=== PATIENT | female | born 1950 | race Asian ===

== ENCOUNTER 2016-10-26 16:52 | Inpatient (IN) | payer OTHER ==
[~2016-10-26] VITALS: Ht 160 cm; Wt 88.9 kg
[~2016-10-26 16:52] MED LIST: ALPR0.5T8 PO; ALPR1TAB7 PO; ASPI-1093 PO; INSNOV SQ; INSU3INS3 SQ; METF500T4 PO; METO25TA6 PO; NITR0.4T SL; ZOLP10TA6 PO
[2016-10-26] MEDS ORDERED: CLOP75 PO (17:21)
[2016-10-26] MEDS ORDERED: LIRA0.6P SQ (17:21)
[2016-10-26 17:22] LABS: GLUCOSE,POINT OF CARE 288 MG/DL (70-110)
[2016-10-26 18:35] LABS: BASOPHILS % (AUTO) 0.1 % (0.0-2.0); EOSINOPHILS % (AUTO) 0.7 % (1.0-6.0); HEMATOCRIT 32.6 % (36-46); HEMOGLOBIN 10.5 g/dL (12.0-16.0); LYMPHOCYTES # (AUTO) 2.3 K/uL (1.0-4.8); LYMPHOCYTES % (AUTO) 16.7 % (22.0-44.0); MEAN CORPUSCULAR HEMOGLOBIN 27.6 pg (26.0-34.0); MEAN CORPUSCULAR HGB CONC 32.2 G/dL (31.0-37.0); MEAN CORPUSCULAR VOLUME 86 fL (80-100); MONOCYTES # (AUTO) 1.1 K/uL (0.1-1.0); MONOCYTES % (AUTO) 7.7 % (2.0-9.0); NEUTROPHILS # (AUTO) 10.3 K/uL (1.8-7.7); NEUTROPHILS % (AUTO) 74.8 % (40.0-70.0); PLATELET COUNT (AUTO) 277 K/uL (150-450); WHITE BLOOD COUNT (AUTO) 13.7 K/uL (4.5-11.0)
[2016-10-26 18:46] LABS: CALCIUM, TOTAL 8.4 mg/dL (8.8-10.5); CREATININE 1.6 mg/dL (0.60-1.30); POTASSIUM 4.8 mmol/L (3.5-5.1)
[2016-10-26 18:52] LABS: ALBUMIN 3.1 g/dL (3.4-5.0); BILIRUBIN,TOTAL 0.4 mg/dL (0.1-1.0); TOTAL PROTEIN, SERUM 8.7 g/dL (6.4-8.2)
[2016-10-26] MEDS ORDERED: VANCOMYCIN HCL 1 GM/D5% WATER 200 ML IV ONE (20:15)
[2016-10-26] MEDS ORDERED: PIPERACILLIN/TAZO 3.375 GM/D5W 50 ML IV ONE (20:15)
[2016-10-26 20:57] LABS: GLUCOSE,POINT OF CARE 197 MG/DL (70-110)
[2016-10-26] MEDS ORDERED: ZOLPIDEM TARTRATE 10 MG TABLET PO SCH (21:45)
[2016-10-26] MEDS ORDERED: 0.9% SODIUM CHLORIDE 10 ML SYRINGE IVP PRN (21:45)
[2016-10-26] MEDS ORDERED: NITROGLYCERIN 0.4 MG SUBLINGUAL TABLET #25 SL PRN (21:45)
[2016-10-26] MEDS ORDERED: DEXTROSE 50%-WATER 25 GM/50 ML SYRINGE IVP PRN (21:45)
[2016-10-26] MEDS ORDERED: ZOLPIDEM TARTRATE 5 MG TABLET PO PRN (23:30)
[2016-10-27 00:10] VITALS: BP 146/61
[2016-10-27] MEDS: METOPROLOL TARTRATE 50 MG TABLET PO SCH ×2 (00:38→20:33)
[2016-10-27] MEDS: INSULIN ASPART 100 UNITS/ML SQ PRN ×5 (00:39→20:41)
[2016-10-27] MEDS: INSULIN DETEMIR 100 UNITS/ML SQ SCH ×2 (00:40→20:44)
[2016-10-27] MEDS ORDERED: ACETAMINOPHEN 325 MG TABLET PO PRN (04:00)
[2016-10-27 04:03] VITALS: BP 139/67
[2016-10-27] MEDS ORDERED: NAPROXEN 250 MG TABLET PO PRN (04:15)
[2016-10-27 06:16] LABS: BASOPHILS % (AUTO) 0.2 % (0.0-2.0); EOSINOPHILS % (AUTO) 1.1 % (1.0-6.0); HEMOGLOBIN 9.8 g/dL (12.0-16.0); LYMPHOCYTES # (AUTO) 1.9 K/uL (1.0-4.8); LYMPHOCYTES % (AUTO) 15.4 % (22.0-44.0); MEAN CORPUSCULAR HEMOGLOBIN 27.4 pg (26.0-34.0); MEAN CORPUSCULAR HGB CONC 31.8 G/dL (31.0-37.0); MEAN CORPUSCULAR VOLUME 86 fL (80-100); MONOCYTES % (AUTO) 8.3 % (2.0-9.0); NEUTROPHILS # (AUTO) 9.2 K/uL (1.8-7.7); PLATELET COUNT (AUTO) 274 K/uL (150-450); RED BLOOD CELL COUNT(AUTO) 3.59 MIL/uL (4.00-5.20); RED CELL DISTRIBUTION WIDTH 13.9 % (11.5-14.5); WHITE BLOOD COUNT (AUTO) 12.3 K/uL (4.5-11.0)
[2016-10-27 06:30] LABS: CALCIUM, TOTAL 8.2 mg/dL (8.8-10.5); CHOL/HDL RATIO 3.3 (3.9-5.7); CREATININE 1.33 mg/dL (0.60-1.30); POTASSIUM 4.2 mmol/L (3.5-5.1)
[2016-10-27 07:16] LABS: HEMOGLOBIN A1C 9.5 % (4.5-6.2)
[2016-10-27 07:46] LABS: GLUCOSE,POINT OF CARE 217 MG/DL (70-110)
[2016-10-27] MEDS: MetFORMIN HCL 500 MG TABLET PO SCH ×2 (08:00→17:24)
[2016-10-27] MEDS ORDERED: MetFORMIN HCL 500 MG TABLET PO SCH (08:00)
[2016-10-27 08:02] VITALS: BP 123/69
[2016-10-27 08:47] LABS: ERYTHROCYTE SEDIMENTATION RATE 125 MM/HR (0-20)
[2016-10-27] MEDS: LOSARTAN POTASSIUM 50 MG TABLET PO SCH (08:53)
[2016-10-27] MEDS: ALPRAZolam 1 MG TABLET PO SCH ×3 (08:54→21:00)
[2016-10-27] MEDS: CLOPIDOGREL BISULFATE 75 MG TABLET PO SCH (08:54)
[2016-10-27] MEDS: ATORVASTATIN CALCIUM 40 MG TABLET PO SCH (08:54)
[2016-10-27] MEDS: ASPIRIN 81 MG CHEWABLE TABLET PO SCH (08:54)
[2016-10-27] MEDS ORDERED: ALPRAZolam 0.5 MG TABLET PO SCH (09:00)
[2016-10-27] MEDS ORDERED: LIRAGLUTIDE 1.2 MG SQ SCH (09:00)
[2016-10-27] MEDS ORDERED: METOPROLOL TARTRATE 25 MG TABLET PO SCH (09:00)
[2016-10-27] MEDS ORDERED: ASPIRIN 81 MG EC TABLET PO SCH (09:00)
[2016-10-27] MEDS ORDERED: SODIUM CHLORIDE 0.9% 500 ML IV ONE (10:58)
[2016-10-27] MEDS ORDERED: VANCOMYCIN HCL 1 GM/D5% WATER 200 ML IV ONE (11:00)
[2016-10-27] MEDS: PIPERACILLIN/TAZO 3.375 GM/D5W 50 ML IV SCH ×3 (11:17→20:34)
[2016-10-27 11:47] LABS: GLUCOSE,POINT OF CARE 96 MG/DL (70-110)
[2016-10-27 11:52] VITALS: BP 150/74
[2016-10-27] MEDS ORDERED: LORazepam 2 MG/ML VIAL IVP ONE (13:15)
[2016-10-27] MEDS ORDERED: BISACODYL 10 MG RECTAL RECTAL SUPPOSITORY PR PRN (15:00)
[2016-10-27] MEDS ORDERED: MAGNESIUM HYDROXIDE SUSPENSION 30 ML UDCUP PO PRN (15:00)
[2016-10-27 15:10] VITALS: BP 128/63
[2016-10-27 19:37] LABS: GLUCOSE COMMENT 1 Received Meds; GLUCOSE,POINT OF CARE 163 MG/DL (70-110)
[2016-10-27 19:58] VITALS: BP 141/70
[2016-10-27 20:52] LABS: GLUCOSE COMMENT 1 Received Meds; GLUCOSE,POINT OF CARE 216 MG/DL (70-110)
[2016-10-28 00:16] VITALS: BP 140/86
[2016-10-28] MEDS: PIPERACILLIN/TAZO 3.375 GM/D5W 50 ML IV SCH ×4 (04:53→23:04)
[2016-10-28] MEDS: INSULIN ASPART 100 UNITS/ML SQ PRN ×3 (04:58→17:53)
[2016-10-28 05:06] VITALS: BP 149/72
[2016-10-28] MEDS ORDERED: FentaNYL CITRATE-PF 100 MCG/2 ML VIAL IVP ONE (05:22)
[2016-10-28] MEDS ORDERED: MIDAZOLAM HCL 2 MG/2 ML VIAL IVP ONE (05:22)
[2016-10-28 06:17] LABS: CALCIUM, TOTAL 8.5 mg/dL (8.8-10.5); CREATININE 1.34 mg/dL (0.60-1.30); POTASSIUM 4.7 mmol/L (3.5-5.1)
[2016-10-28] MEDS ORDERED: METOCLOPRAMIDE HCL 5 MG/ML 2 ML VIAL IVP ONE (06:43)
[2016-10-28] MEDS ORDERED: PROPOFOL 1% 20 ML VIAL IVP ONE (06:43)
[2016-10-28] MEDS ORDERED: LIDOCAINE HCL/PF 2% 5 ML VIAL IM ONE (06:43)
[2016-10-28] MEDS ORDERED: ONDANSETRON HCL 4 MG/2 ML VIAL IVP ONE (06:43)
[2016-10-28 07:47] LABS: GLUCOSE COMMENT 1 Received Meds; GLUCOSE,POINT OF CARE 195 MG/DL (70-110)
[2016-10-28 07:49] VITALS: BP 139/69
[2016-10-28] MEDS: MetFORMIN HCL 500 MG TABLET PO SCH ×2 (08:00→16:20)
[2016-10-28] MEDS: VANCOMYCIN HCL 1.25 GM in DEXTROSE 5%-WATER 250 ML IV SCH (08:08)
[2016-10-28] MEDS: LOSARTAN POTASSIUM 50 MG TABLET PO SCH (08:09)
[2016-10-28] MEDS: ASPIRIN 81 MG CHEWABLE TABLET PO SCH (08:09)
[2016-10-28] MEDS: ATORVASTATIN CALCIUM 40 MG TABLET PO SCH (08:09)
[2016-10-28] MEDS: ALPRAZolam 1 MG TABLET PO SCH ×3 (08:10→21:00)
[2016-10-28] MEDS: LIRAGLUTIDE 1.2 MG SQ SCH (08:10)
[2016-10-28] MEDS: CLOPIDOGREL BISULFATE 75 MG TABLET PO SCH (08:10)
[2016-10-28] MEDS ORDERED: SODIUM CHLORIDE 0.9% 1,000 ML IV ONE ×2 (10:45→19:35)
[2016-10-28 11:15] VITALS: BP 138/63
[2016-10-28] MEDS ORDERED: BUPIVACAINE HCL/PF 0.5% 30 ML VIAL ONE ×2 (11:34)
[2016-10-28] MEDS ORDERED: LIDOCAINE HCL/PF 1% 30 ML VIAL ONE (11:35)
[2016-10-28 12:02] LABS: GLUCOSE COMMENT 1 Doctor Notified; GLUCOSE,POINT OF CARE 116 MG/DL (70-110)
[2016-10-28] MEDS: SODIUM CHLORIDE 0.45% 1,000 ML IV SCH ×2 (13:24→22:30)
[2016-10-28] MEDS ORDERED: ZOLPIDEM TARTRATE 5 MG TABLET PO PRN (13:45)
[2016-10-28] MEDS: LIDOCAINE HCL/PF 1% 30 ML VIAL ONE ×2 (15:53→19:15)
[2016-10-28] MEDS: BUPIVACAINE HCL/PF 0.5% 30 ML VIAL ONE ×2 (15:53→19:15)
[2016-10-28 16:14] VITALS: BP 144/65
[2016-10-28] MEDS ORDERED: FentaNYL CITRATE-PF 100 MCG/2 ML VIAL IVP PRN (19:30)
[2016-10-28] MEDS ORDERED: HYDROmorphone 2 MG/ML SYRINGE IVP PRN (19:30)
[2016-10-28] MEDS ORDERED: MEPERIDINE-PF 25 MG/ML SYRINGE IVP PRN (19:30)
[2016-10-28] MEDS ORDERED: SODIUM CHLORIDE 0.9% 10 ML ONE (19:35)
[2016-10-28] MEDS ORDERED: BACITRACIN 50,000 UNITS/VIAL ONE (19:35)
[2016-10-28 19:47] LABS: GLUCOSE,POINT OF CARE 140 MG/DL (70-110)
[2016-10-28 19:47] LABS: GLUCOSE,POINT OF CARE 105 MG/DL (70-110)
[2016-10-28] MEDS ORDERED: OXYGEN THERAPY IH SCH (20:00)
[2016-10-28] MEDS: INSULIN DETEMIR 100 UNITS/ML SQ SCH (21:00)
[2016-10-28 21:32] LABS: GLUCOSE,POINT OF CARE 103 MG/DL (70-110)
[2016-10-28] MEDS: METOPROLOL TARTRATE 50 MG TABLET PO SCH (21:34)
[2016-10-28] MEDS: OxyCODONE HCL/ACETAMINOPHEN 5-325 MG TABLET PO SCH (23:04)
[2016-10-28 23:26] VITALS: BP 119/74
[2016-10-29 04:42] VITALS: BP 131/72
[2016-10-29] MEDS: PIPERACILLIN/TAZO 3.375 GM/D5W 50 ML IV SCH ×4 (04:58→21:15)
[2016-10-29] MEDS: OxyCODONE HCL/ACETAMINOPHEN 5-325 MG TABLET PO SCH ×3 (06:00→17:38)
[2016-10-29 06:10] LABS: BASOPHILS % (AUTO) 0.2 % (0.0-2.0); HEMATOCRIT 28.6 % (36-46); HEMOGLOBIN 9.1 g/dL (12.0-16.0); LYMPHOCYTES # (AUTO) 2.3 K/uL (1.0-4.8); LYMPHOCYTES % (AUTO) 21.9 % (22.0-44.0); MEAN CORPUSCULAR HEMOGLOBIN 27.5 pg (26.0-34.0); MEAN CORPUSCULAR HGB CONC 31.9 G/dL (31.0-37.0); MEAN CORPUSCULAR VOLUME 86 fL (80-100); MONOCYTES # (AUTO) 0.9 K/uL (0.1-1.0); MONOCYTES % (AUTO) 8.9 % (2.0-9.0); NEUTROPHILS # (AUTO) 6.9 K/uL (1.8-7.7); PLATELET COUNT (AUTO) 227 K/uL (150-450); RED BLOOD CELL COUNT(AUTO) 3.31 MIL/uL (4.00-5.20); RED CELL DISTRIBUTION WIDTH 14.4 % (11.5-14.5); WHITE BLOOD COUNT (AUTO) 10.5 K/uL (4.5-11.0)
[2016-10-29 06:31] LABS: CALCIUM, TOTAL 8.1 mg/dL (8.8-10.5); CREATININE 1.55 mg/dL (0.60-1.30); POTASSIUM 4.6 mmol/L (3.5-5.1)
[2016-10-29] MEDS: INSULIN ASPART 100 UNITS/ML SQ PRN ×4 (06:42→21:16)
[2016-10-29 08:34] VITALS: BP 134/60
[2016-10-29] MEDS: MetFORMIN HCL 500 MG TABLET PO SCH ×3 (08:37→17:38)
[2016-10-29] MEDS: ATORVASTATIN CALCIUM 40 MG TABLET PO SCH (08:37)
[2016-10-29] MEDS: ASPIRIN 81 MG CHEWABLE TABLET PO SCH (08:38)
[2016-10-29] MEDS: LOSARTAN POTASSIUM 50 MG TABLET PO SCH (08:38)
[2016-10-29] MEDS: CLOPIDOGREL BISULFATE 75 MG TABLET PO SCH (08:38)
[2016-10-29] MEDS: VANCOMYCIN HCL 1.25 GM in DEXTROSE 5%-WATER 250 ML IV SCH (08:46)
[2016-10-29 11:28] VITALS: BP 142/66
[2016-10-29 11:46] LABS: GLUCOSE COMMENT 1 Received Meds; GLUCOSE,POINT OF CARE 303 MG/DL (70-110)
[2016-10-29 12:38] LABS: GLUCOSE,POINT OF CARE 282 MG/DL (70-110)
[2016-10-29] MEDS: SODIUM CHLORIDE 0.45% 1,000 ML IV SCH (15:10)
[2016-10-29] MEDS: ALPRAZolam 1 MG TABLET PO SCH ×3 (15:21→21:15)
[2016-10-29 15:39] VITALS: BP 109/62
[2016-10-29 17:46] LABS: GLUCOSE COMMENT 1 Received Meds; GLUCOSE,POINT OF CARE 144 MG/DL (70-110)
[2016-10-29 20:31] VITALS: BP 123/61
[2016-10-29] MEDS: METOPROLOL TARTRATE 50 MG TABLET PO SCH (21:15)
[2016-10-29] MEDS: INSULIN DETEMIR 100 UNITS/ML SQ SCH (21:17)
[2016-10-29 21:37] LABS: GLUCOSE COMMENT 1 Received Meds; GLUCOSE,POINT OF CARE 210 MG/DL (70-110)
[2016-10-29 23:37] VITALS: BP 118/56
[2016-10-30] MEDS: SODIUM CHLORIDE 0.45% 1,000 ML IV SCH (02:47)
[2016-10-30] MEDS: PIPERACILLIN/TAZO 3.375 GM/D5W 50 ML IV SCH ×4 (04:24→21:12)
[2016-10-30] MEDS: INSULIN ASPART 100 UNITS/ML SQ PRN ×4 (05:38→21:10)
[2016-10-30] MEDS: OxyCODONE HCL/ACETAMINOPHEN 5-325 MG TABLET PO SCH ×4 (06:00→18:00)
[2016-10-30 06:04] VITALS: BP 115/55
[2016-10-30 06:12] LABS: GLUCOSE COMMENT 1 Received Meds; GLUCOSE,POINT OF CARE 216 MG/DL (70-110)
[2016-10-30 07:23] LABS: CALCIUM, TOTAL 7.9 mg/dL (8.8-10.5); CREATININE 1.56 mg/dL (0.60-1.30); POTASSIUM 4.5 mmol/L (3.5-5.1)
[2016-10-30 07:54] VITALS: BP 117/57
[2016-10-30] MEDS: VANCOMYCIN HCL 1.25 GM in DEXTROSE 5%-WATER 250 ML IV SCH (08:06)
[2016-10-30] MEDS: ATORVASTATIN CALCIUM 40 MG TABLET PO SCH (08:06)
[2016-10-30] MEDS: CLOPIDOGREL BISULFATE 75 MG TABLET PO SCH (08:07)
[2016-10-30] MEDS: LOSARTAN POTASSIUM 50 MG TABLET PO SCH (08:07)
[2016-10-30] MEDS: LIRAGLUTIDE 1.2 MG SQ SCH ×2 (08:07→09:00)
[2016-10-30] MEDS: ALPRAZolam 1 MG TABLET PO SCH ×3 (08:07→21:00)
[2016-10-30] MEDS: ASPIRIN 81 MG CHEWABLE TABLET PO SCH (08:07)
[2016-10-30 11:31] LABS: GLUCOSE COMMENT 1 Received Meds; GLUCOSE,POINT OF CARE 237 MG/DL (70-110)
[2016-10-30 12:06] VITALS: BP 142/66
[2016-10-30 15:52] VITALS: BP 145/68
[2016-10-30 17:37] LABS: GLUCOSE COMMENT 1 Received Meds; GLUCOSE,POINT OF CARE 174 MG/DL (70-110)
[2016-10-30] MEDS: MetFORMIN HCL 500 MG TABLET PO SCH (18:16)
[2016-10-30 20:08] VITALS: BP 141/63
[2016-10-30] MEDS: METOPROLOL TARTRATE 50 MG TABLET PO SCH (21:06)
[2016-10-30] MEDS: INSULIN DETEMIR 100 UNITS/ML SQ SCH (21:08)
[2016-10-30 23:09] VITALS: BP 152/83
[2016-10-30 23:51] LABS: GLUCOSE COMMENT 1 Received Meds; GLUCOSE,POINT OF CARE 298 MG/DL (70-110)
[2016-10-31] MEDS: OxyCODONE HCL/ACETAMINOPHEN 5-325 MG TABLET PO SCH ×4 (03:23→18:00)
[2016-10-31] MEDS: PIPERACILLIN/TAZO 3.375 GM/D5W 50 ML IV SCH ×4 (03:23→21:06)
[2016-10-31 04:51] VITALS: BP 166/73
[2016-10-31] MEDS: INSULIN ASPART 100 UNITS/ML SQ PRN ×4 (05:36→20:25)
[2016-10-31 05:47] LABS: GLUCOSE COMMENT 1 Received Meds; GLUCOSE,POINT OF CARE 216 MG/DL (70-110)
[2016-10-31 06:18] LABS: CALCIUM, TOTAL 8.8 mg/dL (8.8-10.5); CREATININE 1.13 mg/dL (0.60-1.30); POTASSIUM 4.5 mmol/L (3.5-5.1)
[2016-10-31] MEDS: MetFORMIN HCL 500 MG TABLET PO SCH ×2 (08:00→18:00)
[2016-10-31] MEDS: LIRAGLUTIDE 1.2 MG SQ SCH (08:25)
[2016-10-31] MEDS: VANCOMYCIN HCL 1.25 GM in DEXTROSE 5%-WATER 250 ML IV SCH (08:25)
[2016-10-31] MEDS: LOSARTAN POTASSIUM 50 MG TABLET PO SCH (08:26)
[2016-10-31] MEDS: CLOPIDOGREL BISULFATE 75 MG TABLET PO SCH (08:26)
[2016-10-31] MEDS: ASPIRIN 81 MG CHEWABLE TABLET PO SCH (08:27)
[2016-10-31] MEDS: ATORVASTATIN CALCIUM 40 MG TABLET PO SCH (08:27)
[2016-10-31] MEDS: ALPRAZolam 1 MG TABLET PO SCH ×3 (08:29→20:16)
[2016-10-31 08:30] VITALS: BP 166/79
[2016-10-31 11:37] LABS: GLUCOSE COMMENT 1 Received Meds; GLUCOSE,POINT OF CARE 232 MG/DL (70-110)
[2016-10-31 16:09] VITALS: BP 125/79
[2016-10-31] MEDS ORDERED: SODIUM CHLORIDE 0.9% 500 ML IV ONE (16:13)
[2016-10-31 17:28] LABS: GLUCOSE COMMENT 1 Received Meds; GLUCOSE,POINT OF CARE 192 MG/DL (70-110)
[2016-10-31 19:47] VITALS: BP 131/102
[2016-10-31] MEDS: METOPROLOL TARTRATE 50 MG TABLET PO SCH (20:16)
[2016-10-31] MEDS: INSULIN DETEMIR 100 UNITS/ML SQ SCH (20:28)
[2016-10-31 23:24] VITALS: BP 149/95
[2016-10-31] MEDS: CeFAZolin 2 GM/DEXTROSE 50 ML IV SCH (23:38)
[2016-11-01 00:12] LABS: GLUCOSE COMMENT 1 Received Meds; GLUCOSE,POINT OF CARE 181 MG/DL (70-110)
[2016-11-01 04:27] VITALS: BP 145/95
[2016-11-01] MEDS: INSULIN ASPART 100 UNITS/ML SQ PRN ×3 (05:48→20:28)
[2016-11-01] MEDS: OxyCODONE HCL/ACETAMINOPHEN 5-325 MG TABLET PO SCH ×4 (06:00→18:00)
[2016-11-01 06:52] LABS: CALCIUM, TOTAL 9.8 mg/dL (8.8-10.5); CREATININE 1.11 mg/dL (0.60-1.30); POTASSIUM 4.5 mmol/L (3.5-5.1)
[2016-11-01 07:12] VITALS: BP 159/77
[2016-11-01 07:31] LABS: GLUCOSE COMMENT 1 Received Meds; GLUCOSE,POINT OF CARE 171 MG/DL (70-110)
[2016-11-01] MEDS: MetFORMIN HCL 500 MG TABLET PO SCH ×2 (08:00→18:00)
[2016-11-01] MEDS: ATORVASTATIN CALCIUM 40 MG TABLET PO SCH (08:25)
[2016-11-01] MEDS: ASPIRIN 81 MG CHEWABLE TABLET PO SCH (08:25)
[2016-11-01] MEDS: ALPRAZolam 1 MG TABLET PO SCH ×3 (08:26→23:32)
[2016-11-01] MEDS: CLOPIDOGREL BISULFATE 75 MG TABLET PO SCH (08:26)
[2016-11-01] MEDS: LOSARTAN POTASSIUM 50 MG TABLET PO SCH (08:26)
[2016-11-01] MEDS: LIRAGLUTIDE 1.2 MG SQ SCH (08:27)
[2016-11-01] MEDS: CeFAZolin 2 GM/DEXTROSE 50 ML IV SCH ×3 (08:46→23:35)
[2016-11-01 12:16] VITALS: BP 132/71
[2016-11-01 12:32] LABS: GLUCOSE COMMENT 1 Received Meds; GLUCOSE,POINT OF CARE 194 MG/DL (70-110)
[2016-11-01 15:08] LABS: PROTHROMBIN TIME 10.1 SEC (9.4-11.6)
[2016-11-01] MEDS ORDERED: HEPARIN SODIUM 1000 UNITS/NS 500 ML ONE (15:37)
[2016-11-01 16:48] VITALS: BP 142/82
[2016-11-01 18:22] LABS: GLUCOSE COMMENT 1 Received Meds; GLUCOSE,POINT OF CARE 224 MG/DL (70-110)
[2016-11-01 20:14] VITALS: BP 131/69
[2016-11-01] MEDS: METOPROLOL TARTRATE 50 MG TABLET PO SCH (20:24)
[2016-11-01] MEDS: INSULIN DETEMIR 100 UNITS/ML SQ SCH (20:28)
[2016-11-01 20:47] LABS: GLUCOSE COMMENT 1 Received Meds; GLUCOSE,POINT OF CARE 196 MG/DL (70-110)
[2016-11-02 00:21] VITALS: BP 131/82
[2016-11-02 05:30] VITALS: BP 148/72
[2016-11-02] MEDS: INSULIN ASPART 100 UNITS/ML SQ PRN ×3 (05:39→17:26)
[2016-11-02] MEDS: OxyCODONE HCL/ACETAMINOPHEN 5-325 MG TABLET PO SCH ×4 (05:47→18:00)
[2016-11-02 07:11] LABS: CALCIUM, TOTAL 9.1 mg/dL (8.8-10.5); CREATININE 1.04 mg/dL (0.60-1.30)
[2016-11-02] MEDS: MetFORMIN HCL 500 MG TABLET PO SCH ×2 (08:00→18:00)
[2016-11-02 08:06] VITALS: BP 122/65
[2016-11-02] MEDS: ASPIRIN 81 MG CHEWABLE TABLET PO SCH (08:22)
[2016-11-02] MEDS: CeFAZolin 2 GM/DEXTROSE 50 ML IV SCH ×2 (08:22→16:29)
[2016-11-02] MEDS: LOSARTAN POTASSIUM 50 MG TABLET PO SCH (08:23)
[2016-11-02] MEDS: ATORVASTATIN CALCIUM 40 MG TABLET PO SCH (08:23)
[2016-11-02] MEDS: ALPRAZolam 1 MG TABLET PO SCH ×2 (08:23→16:00)
[2016-11-02] MEDS: CLOPIDOGREL BISULFATE 75 MG TABLET PO SCH (08:23)
[2016-11-02] MEDS: LIRAGLUTIDE 1.2 MG SQ SCH (08:24)
[2016-11-02 11:39] VITALS: BP 146/82
[2016-11-02 14:22] LABS: GLUCOSE COMMENT 1 Received Meds; GLUCOSE,POINT OF CARE 203 MG/DL (70-110)
[2016-11-02 14:22] LABS: GLUCOSE COMMENT 1 Received Meds; GLUCOSE,POINT OF CARE 150 MG/DL (70-110)
[2016-11-02 15:55] VITALS: BP 117/59
[2016-11-02 17:36] LABS: GLUCOSE COMMENT 1 Received Meds; GLUCOSE,POINT OF CARE 234 MG/DL (70-110)
[2016-11-07] MEDS ORDERED: ATOR40TA28 PO (11:04)
[2016-11-07] MEDS ORDERED: CEFA2PIG IV (11:04)
[2016-11-07] MEDS ORDERED: INSU100V12 SQ (11:04)
[2016-11-07] MEDS ORDERED: NAPR125O4 PO (11:04)
[2016-11-07] MEDS ORDERED: METO50 PO (11:04)
[2016-11-07] MEDS ORDERED: NITR0.4T27 SL (11:04)
[2016-11-07] MEDS ORDERED: PERCT PO (11:04)
[2016-11-07] MEDS ORDERED: LOSA50TA37 PO (11:04)
[2016-11-07] MEDS ORDERED: ZOLP5 PO (11:04)
[2016-11-07] MEDS ORDERED: METF500T4 PO (11:04)
[2017-01-18] MEDS ORDERED: CEPH500 PO (16:17)
== END 2016-11-02 18:42 | DRG 629 ==
LOC: EMS 16:54 → 6N 20:48
PROVIDERS: ADMIT Family Medicine; ATTEND Family Medicine
PROC: 0QBQ0ZX Excision of Right Toe Phalanx, Open Approach, Diagnostic (ICD-10-PCS; 2016-10-28)
PROC: 0QBQ0ZZ Excision of Right Toe Phalanx, Open Approach (ICD-10-PCS; principal; 2016-10-28 19:00)
PROC: 02H633Z Insertion of Infusion Device into Right Atrium, Percutaneous Approach (ICD-10-PCS; 2016-11-01)
PROC: B244ZZZ Ultrasonography of Right Heart (ICD-10-PCS; 2016-11-01)
DX: E11.621 Type 2 diabetes mellitus with foot ulcer (principal); M86.9 Osteomyelitis, unspecified; L03.116 Cellulitis of left lower limb; E11.69 Type 2 diabetes mellitus with other specified complication; E11.51 Type 2 diabetes mellitus with diabetic peripheral angiopathy without gangrene; E11.40 Type 2 diabetes mellitus with diabetic neuropathy, unspecified; L03.031 Cellulitis of right toe; B95.61 Methicillin susceptible Staphylococcus aureus infection as the cause of diseases classified elsewhere; E78.00 Pure hypercholesterolemia, unspecified; E78.5 Hyperlipidemia, unspecified; I11.9 Hypertensive heart disease without heart failure; I25.10 Atherosclerotic heart disease of native coronary artery without angina pectoris; L97.519 Non-pressure chronic ulcer of other part of right foot with unspecified severity; M10.00 Idiopathic gout, unspecified site; Z79.4 Long term (current) use of insulin; Z89.412 Acquired absence of left great toe; Z95.1 Presence of aortocoronary bypass graft; Z95.5 Presence of coronary angioplasty implant and graft; Z79.82 Long term (current) use of aspirin; Z79.02 Long term (current) use of antithrombotics/antiplatelets; Z79.899 Other long term (current) drug therapy; I25.2 Old myocardial infarction
CPT/HCPCS: 36569; 73718; 76937; 82962; 83036; 83735; 85651; 87070; 87205; 88305; 88311; 93005; 96365; 99285; J0690; J1644; J2060; J2250; J2405; J2543; J2704; J2765; J3010; J3370; J3490; J7030; J7040; J7060

== ENCOUNTER → 2016-11-07 | Outpatient (CLI) | payer OTHER ==
[~2016-11-07] VITALS: Ht 160 cm; Wt 89.5 kg
[~2016-11-07] MED LIST changes: -ALPR1TAB7 PO; +ATOR40TA28 PO; +CEFA2PIG IV; +CEPH500 PO; +CLOP75 PO; +INSU100V12 SQ; +LIRA0.6P SQ; +LOSA50TA37 PO; +METO50 PO; +NAPR125O4 PO; +NITR0.4T27 SL; +PERCT PO; +SODIUM CHLORIDE 0.9% 1,000 ML IV ONE; +ZOLP5 PO
[2016-11-07 10:16] VITALS: BP 134/73
== END | disposition home or self-care (01) ==
LOC: HBOWC 09:28
PROVIDERS: ATTEND Emergency Medicine
DX: E11.621 Type 2 diabetes mellitus with foot ulcer (principal); L97.521 Non-pressure chronic ulcer of other part of left foot limited to breakdown of skin; L97.511 Non-pressure chronic ulcer of other part of right foot limited to breakdown of skin; E11.69 Type 2 diabetes mellitus with other specified complication; M86.8X7 Other osteomyelitis, ankle and foot; E78.5 Hyperlipidemia, unspecified; I11.9 Hypertensive heart disease without heart failure; I25.2 Old myocardial infarction; E78.00 Pure hypercholesterolemia, unspecified; E11.40 Type 2 diabetes mellitus with diabetic neuropathy, unspecified; E11.51 Type 2 diabetes mellitus with diabetic peripheral angiopathy without gangrene; B35.1 Tinea unguium; L84 Corns and callosities; Z89.412 Acquired absence of left great toe; Z95.1 Presence of aortocoronary bypass graft; Z79.4 Long term (current) use of insulin
CPT/HCPCS: 97597; J7030

== ENCOUNTER → 2016-11-15 | Outpatient (CLI) | payer OTHER ==
[~2016-11-15] MED LIST changes: -INSU3INS3 SQ; -SODIUM CHLORIDE 0.9% 1,000 ML IV ONE
[2016-11-15 14:52] VITALS: BP 137/77
== END | disposition home or self-care (01) ==
LOC: HBOWC 12:26
PROVIDERS: ATTEND Emergency Medicine
DX: E11.621 Type 2 diabetes mellitus with foot ulcer (principal); L97.522 Non-pressure chronic ulcer of other part of left foot with fat layer exposed; L97.511 Non-pressure chronic ulcer of other part of right foot limited to breakdown of skin; E11.69 Type 2 diabetes mellitus with other specified complication; M86.8X7 Other osteomyelitis, ankle and foot; B35.1 Tinea unguium; I25.2 Old myocardial infarction; L84 Corns and callosities; E78.5 Hyperlipidemia, unspecified; I11.0 Hypertensive heart disease with heart failure; I50.9 Heart failure, unspecified; E11.40 Type 2 diabetes mellitus with diabetic neuropathy, unspecified; E78.00 Pure hypercholesterolemia, unspecified; E11.52 Type 2 diabetes mellitus with diabetic peripheral angiopathy with gangrene; Z95.1 Presence of aortocoronary bypass graft; Z89.412 Acquired absence of left great toe; Z79.4 Long term (current) use of insulin
CPT/HCPCS: 97597

== ENCOUNTER → 2016-11-23 | Outpatient (CLI) | payer OTHER ==
[2016-11-23 10:14] VITALS: BP 100/50
== END | disposition home or self-care (01) ==
LOC: HBOWC 09:23
PROVIDERS: ATTEND Emergency Medicine
DX: E11.621 Type 2 diabetes mellitus with foot ulcer (principal); L97.511 Non-pressure chronic ulcer of other part of right foot limited to breakdown of skin; L97.522 Non-pressure chronic ulcer of other part of left foot with fat layer exposed; E11.69 Type 2 diabetes mellitus with other specified complication; M86.8X7 Other osteomyelitis, ankle and foot; E11.51 Type 2 diabetes mellitus with diabetic peripheral angiopathy without gangrene; I11.0 Hypertensive heart disease with heart failure; I50.9 Heart failure, unspecified; Z89.412 Acquired absence of left great toe; I25.2 Old myocardial infarction; Z79.4 Long term (current) use of insulin; E78.5 Hyperlipidemia, unspecified; L84 Corns and callosities; E78.00 Pure hypercholesterolemia, unspecified; Z95.1 Presence of aortocoronary bypass graft
CPT/HCPCS: 97597

== ENCOUNTER → 2016-11-28 | Outpatient (CLI) | payer OTHER | END | disposition home or self-care (01) | LOC: RADPV 12:28 | PROVIDERS: ATTEND Emergency Medicine | DX: E11.621 Type 2 diabetes mellitus with foot ulcer (principal); L97.529 Non-pressure chronic ulcer of other part of left foot with unspecified severity; S92.912D Unspecified fracture of left toe(s), subsequent encounter for fracture with routine healing; M20.42 Other hammer toe(s) (acquired), left foot; M76.62 Achilles tendinitis, left leg; M77.32 Calcaneal spur, left foot; X58.XXXD Exposure to other specified factors, subsequent encounter ==

== ENCOUNTER → 2016-12-02 | Outpatient (CLI) | payer OTHER ==
[2016-12-02 11:50] VITALS: BP 146/73
== END | disposition home or self-care (01) ==
LOC: HBOWC 10:14
PROVIDERS: ATTEND Emergency Medicine
DX: E11.621 Type 2 diabetes mellitus with foot ulcer (principal); L97.511 Non-pressure chronic ulcer of other part of right foot limited to breakdown of skin; L97.521 Non-pressure chronic ulcer of other part of left foot limited to breakdown of skin; E11.69 Type 2 diabetes mellitus with other specified complication; M86.8X7 Other osteomyelitis, ankle and foot; L84 Corns and callosities; I11.0 Hypertensive heart disease with heart failure; I50.9 Heart failure, unspecified; E78.5 Hyperlipidemia, unspecified; I25.2 Old myocardial infarction; E78.00 Pure hypercholesterolemia, unspecified; E11.40 Type 2 diabetes mellitus with diabetic neuropathy, unspecified; E11.52 Type 2 diabetes mellitus with diabetic peripheral angiopathy with gangrene; I25.10 Atherosclerotic heart disease of native coronary artery without angina pectoris; Z95.1 Presence of aortocoronary bypass graft; Z89.412 Acquired absence of left great toe
CPT/HCPCS: 97597

== ENCOUNTER → 2016-12-09 | Outpatient (CLI) | payer OTHER ==
[~2016-12-09] MED LIST changes: -CEPH500 PO
[2016-12-09 13:50] VITALS: BP 107/41
== END | disposition home or self-care (01) ==
LOC: HBOWC 13:00
PROVIDERS: ATTEND Emergency Medicine
DX: E11.621 Type 2 diabetes mellitus with foot ulcer (principal); L97.511 Non-pressure chronic ulcer of other part of right foot limited to breakdown of skin; L97.521 Non-pressure chronic ulcer of other part of left foot limited to breakdown of skin; I25.10 Atherosclerotic heart disease of native coronary artery without angina pectoris; Z89.412 Acquired absence of left great toe; E11.52 Type 2 diabetes mellitus with diabetic peripheral angiopathy with gangrene; E78.5 Hyperlipidemia, unspecified; I25.2 Old myocardial infarction; E11.69 Type 2 diabetes mellitus with other specified complication; M86.8X7 Other osteomyelitis, ankle and foot; E78.00 Pure hypercholesterolemia, unspecified; I11.0 Hypertensive heart disease with heart failure; I50.9 Heart failure, unspecified; E11.40 Type 2 diabetes mellitus with diabetic neuropathy, unspecified; Z95.1 Presence of aortocoronary bypass graft; Z79.4 Long term (current) use of insulin
CPT/HCPCS: 97597

== ENCOUNTER → 2016-12-23 | Outpatient (CLI) | payer OTHER ==
[~2016-12-23] MED LIST changes: +CEPH500 PO
[2016-12-23 13:49] VITALS: BP 118/65
== END | disposition home or self-care (01) ==
LOC: HBOWC 12:51
PROVIDERS: ATTEND Emergency Medicine
DX: E11.621 Type 2 diabetes mellitus with foot ulcer (principal); L97.511 Non-pressure chronic ulcer of other part of right foot limited to breakdown of skin; L97.521 Non-pressure chronic ulcer of other part of left foot limited to breakdown of skin; L85.9 Epidermal thickening, unspecified; M20.41 Other hammer toe(s) (acquired), right foot; E11.69 Type 2 diabetes mellitus with other specified complication; M86.8X7 Other osteomyelitis, ankle and foot; B35.1 Tinea unguium; L84 Corns and callosities; I11.0 Hypertensive heart disease with heart failure; I50.9 Heart failure, unspecified; I25.2 Old myocardial infarction; E78.00 Pure hypercholesterolemia, unspecified; E11.40 Type 2 diabetes mellitus with diabetic neuropathy, unspecified; E11.52 Type 2 diabetes mellitus with diabetic peripheral angiopathy with gangrene; M10.9 Gout, unspecified; Z95.1 Presence of aortocoronary bypass graft; Z89.412 Acquired absence of left great toe; Z79.4 Long term (current) use of insulin; Z79.82 Long term (current) use of aspirin
CPT/HCPCS: 97597

== ENCOUNTER → 2016-12-28 | Outpatient (CLI) | payer OTHER ==
[~2016-12-28] MED LIST changes: -CEPH500 PO
[2016-12-28 13:57] VITALS: BP 112/62
== END | disposition home or self-care (01) ==
LOC: HBOWC 12:14
PROVIDERS: ATTEND Emergency Medicine
DX: E11.621 Type 2 diabetes mellitus with foot ulcer (principal); L97.521 Non-pressure chronic ulcer of other part of left foot limited to breakdown of skin; L97.511 Non-pressure chronic ulcer of other part of right foot limited to breakdown of skin; E11.69 Type 2 diabetes mellitus with other specified complication; M86.8X7 Other osteomyelitis, ankle and foot; E11.40 Type 2 diabetes mellitus with diabetic neuropathy, unspecified; E11.52 Type 2 diabetes mellitus with diabetic peripheral angiopathy with gangrene; L84 Corns and callosities; I11.0 Hypertensive heart disease with heart failure; I50.9 Heart failure, unspecified; I25.2 Old myocardial infarction; M20.41 Other hammer toe(s) (acquired), right foot; E78.00 Pure hypercholesterolemia, unspecified; B35.1 Tinea unguium; I25.810 Atherosclerosis of coronary artery bypass graft(s) without angina pectoris; E78.5 Hyperlipidemia, unspecified; Z79.4 Long term (current) use of insulin; Z95.1 Presence of aortocoronary bypass graft; Z89.412 Acquired absence of left great toe; M20.42 Other hammer toe(s) (acquired), left foot
CPT/HCPCS: 11044; 97597

== ENCOUNTER → 2017-01-06 | Outpatient (CLI) | payer OTHER ==
[2017-01-06 15:22] VITALS: BP 126/55
== END | disposition home or self-care (01) ==
LOC: HBOWC 13:47
PROVIDERS: ATTEND Emergency Medicine
DX: E11.621 Type 2 diabetes mellitus with foot ulcer (principal); L97.521 Non-pressure chronic ulcer of other part of left foot limited to breakdown of skin; L97.511 Non-pressure chronic ulcer of other part of right foot limited to breakdown of skin; L84 Corns and callosities; I11.0 Hypertensive heart disease with heart failure; I50.9 Heart failure, unspecified; E78.5 Hyperlipidemia, unspecified; I25.2 Old myocardial infarction; E11.69 Type 2 diabetes mellitus with other specified complication; M86.8X7 Other osteomyelitis, ankle and foot; E78.00 Pure hypercholesterolemia, unspecified; B35.1 Tinea unguium; E11.40 Type 2 diabetes mellitus with diabetic neuropathy, unspecified; E11.52 Type 2 diabetes mellitus with diabetic peripheral angiopathy with gangrene; I25.10 Atherosclerotic heart disease of native coronary artery without angina pectoris; Z79.4 Long term (current) use of insulin
CPT/HCPCS: 97597

== ENCOUNTER → 2017-01-18 | Outpatient (CLI) | payer OTHER ==
[~2017-01-18] MED LIST changes: -CEFA2PIG IV; +CEPH500 PO
[2017-01-18 15:08] VITALS: BP 102/45
== END | disposition home or self-care (01) ==
LOC: HBOWC 13:29
PROVIDERS: ATTEND Emergency Medicine
DX: E11.621 Type 2 diabetes mellitus with foot ulcer (principal); L97.511 Non-pressure chronic ulcer of other part of right foot limited to breakdown of skin; L97.521 Non-pressure chronic ulcer of other part of left foot limited to breakdown of skin; I25.10 Atherosclerotic heart disease of native coronary artery without angina pectoris; L84 Corns and callosities; I11.0 Hypertensive heart disease with heart failure; I50.9 Heart failure, unspecified; I25.2 Old myocardial infarction; E11.69 Type 2 diabetes mellitus with other specified complication; M86.8X7 Other osteomyelitis, ankle and foot; E78.00 Pure hypercholesterolemia, unspecified; B35.1 Tinea unguium; E11.40 Type 2 diabetes mellitus with diabetic neuropathy, unspecified; E11.52 Type 2 diabetes mellitus with diabetic peripheral angiopathy with gangrene; Z89.412 Acquired absence of left great toe; Z79.4 Long term (current) use of insulin
CPT/HCPCS: 97597

== ENCOUNTER → 2017-02-09 | Outpatient (CLI) | payer OTHER ==
[~2017-02-09] MED LIST changes: +ACET-66 PO; +ACET1TAB12 PO; +ALLO100T50 PO; +ALPR1TAB7 PO; +ASCO500 PO; +ASPI-825 PO; +ASPI-996 PO; +ATOR40TA71 PO; +CALC-1009 PO; +CEFA2PIG IV; +CHOL10002 PO; +CIPR-278 PO; +CLIN300 PO; +COLC0.6T69 PO; +DIPH25 PO; +DIPH25CA85 PO; +DSS100 PO; +EXEN10PE SQ; +HYDR-309 PO; +HYDR-3965 PO; +INSLAN SQ; +INSU100V3 SQ; +INSU3INS3 SQ; +LEVO500 PO; +LISI10TA PO; +LOSA25TA2 PO; +MECL25TA3 PO; +METF1000 PO; +PANT40TA25 PO; +PENI250T3 PO; +PENI500T2 PO; +PRAV40 PO; +SIMV20TA6 PO; +SITA100 PO; +SULF1TAB42 PO; +VANC750F IV
[2017-02-09 14:09] VITALS: BP 130/61
== END | disposition home or self-care (01) ==
LOC: HBOWC 13:36
PROVIDERS: ATTEND Emergency Medicine
DX: E11.621 Type 2 diabetes mellitus with foot ulcer (principal); L97.511 Non-pressure chronic ulcer of other part of right foot limited to breakdown of skin; L97.521 Non-pressure chronic ulcer of other part of left foot limited to breakdown of skin; I25.10 Atherosclerotic heart disease of native coronary artery without angina pectoris; L84 Corns and callosities; I11.0 Hypertensive heart disease with heart failure; I50.9 Heart failure, unspecified; Z79.4 Long term (current) use of insulin; I25.2 Old myocardial infarction; E11.69 Type 2 diabetes mellitus with other specified complication; M86.8X7 Other osteomyelitis, ankle and foot; E78.00 Pure hypercholesterolemia, unspecified; B35.1 Tinea unguium; E11.40 Type 2 diabetes mellitus with diabetic neuropathy, unspecified; E11.52 Type 2 diabetes mellitus with diabetic peripheral angiopathy with gangrene; E78.5 Hyperlipidemia, unspecified; M20.42 Other hammer toe(s) (acquired), left foot; M20.41 Other hammer toe(s) (acquired), right foot; Z79.82 Long term (current) use of aspirin; Z89.412 Acquired absence of left great toe; Z95.1 Presence of aortocoronary bypass graft
CPT/HCPCS: 97597

== ENCOUNTER → 2017-02-20 | Outpatient (CLI) | payer OTHER ==
[~2017-02-20] MED LIST changes: -ACET-66 PO; -ACET1TAB12 PO; -ALLO100T50 PO; -ALPR1TAB7 PO; -ASCO500 PO; -ASPI-825 PO; -ASPI-996 PO; -ATOR40TA71 PO; -CALC-1009 PO; -CEFA2PIG IV; -CHOL10002 PO; -CIPR-278 PO; -CLIN300 PO; -COLC0.6T69 PO; -DIPH25 PO; -DIPH25CA85 PO; -DSS100 PO; -EXEN10PE SQ; -HYDR-309 PO; -HYDR-3965 PO; -INSLAN SQ; -INSU100V3 SQ; -INSU3INS3 SQ; -LEVO500 PO; -LISI10TA PO; -LOSA25TA2 PO; -MECL25TA3 PO; -METF1000 PO; -PANT40TA25 PO; -PENI250T3 PO; -PENI500T2 PO; -PRAV40 PO; -SIMV20TA6 PO; -SITA100 PO; -SULF1TAB42 PO; -VANC750F IV
== END | disposition home or self-care (01) ==
LOC: RADPV 14:04
PROVIDERS: ATTEND Emergency Medicine
DX: E11.621 Type 2 diabetes mellitus with foot ulcer (principal); L97.529 Non-pressure chronic ulcer of other part of left foot with unspecified severity

== ENCOUNTER → 2017-02-23 | Outpatient (CLI) | payer OTHER ==
[2017-02-23 15:21] VITALS: BP 151/70
== END | disposition home or self-care (01) ==
LOC: HBOWC 13:16
PROVIDERS: ATTEND Emergency Medicine
DX: E11.621 Type 2 diabetes mellitus with foot ulcer (principal); L97.511 Non-pressure chronic ulcer of other part of right foot limited to breakdown of skin; L97.521 Non-pressure chronic ulcer of other part of left foot limited to breakdown of skin; I25.10 Atherosclerotic heart disease of native coronary artery without angina pectoris; I11.0 Hypertensive heart disease with heart failure; I50.9 Heart failure, unspecified; E78.5 Hyperlipidemia, unspecified; I25.2 Old myocardial infarction; E11.69 Type 2 diabetes mellitus with other specified complication; M86.8X7 Other osteomyelitis, ankle and foot; E78.00 Pure hypercholesterolemia, unspecified; E11.40 Type 2 diabetes mellitus with diabetic neuropathy, unspecified; L84 Corns and callosities; Z89.412 Acquired absence of left great toe; Z95.1 Presence of aortocoronary bypass graft; Z79.4 Long term (current) use of insulin
CPT/HCPCS: 97597

== ENCOUNTER → 2017-03-03 | Outpatient (CLI) | payer OTHER ==
[2017-03-03 11:23] VITALS: BP 131/56
== END | disposition home or self-care (01) ==
LOC: HBOWC 10:50
PROVIDERS: ATTEND Emergency Medicine
DX: E11.621 Type 2 diabetes mellitus with foot ulcer (principal); L97.511 Non-pressure chronic ulcer of other part of right foot limited to breakdown of skin; L97.521 Non-pressure chronic ulcer of other part of left foot limited to breakdown of skin; I25.10 Atherosclerotic heart disease of native coronary artery without angina pectoris; L84 Corns and callosities; I11.0 Hypertensive heart disease with heart failure; I50.9 Heart failure, unspecified; E78.5 Hyperlipidemia, unspecified; I25.2 Old myocardial infarction; E11.69 Type 2 diabetes mellitus with other specified complication; M86.8X7 Other osteomyelitis, ankle and foot; E78.00 Pure hypercholesterolemia, unspecified; E11.40 Type 2 diabetes mellitus with diabetic neuropathy, unspecified; E11.52 Type 2 diabetes mellitus with diabetic peripheral angiopathy with gangrene; Z79.4 Long term (current) use of insulin; Z79.82 Long term (current) use of aspirin; Z89.412 Acquired absence of left great toe; Z95.1 Presence of aortocoronary bypass graft

== ENCOUNTER → 2017-03-16 | Outpatient (CLI) | payer OTHER ==
[2017-03-16 14:01] VITALS: BP 127/58
== END | disposition home or self-care (01) ==
LOC: HBOWC 12:52
PROVIDERS: ATTEND Emergency Medicine
DX: E11.69 Type 2 diabetes mellitus with other specified complication (principal); M86.8X8 Other osteomyelitis, other site; L84 Corns and callosities; I11.0 Hypertensive heart disease with heart failure; I50.9 Heart failure, unspecified; E78.5 Hyperlipidemia, unspecified; I25.2 Old myocardial infarction; E78.00 Pure hypercholesterolemia, unspecified; E11.40 Type 2 diabetes mellitus with diabetic neuropathy, unspecified; E11.52 Type 2 diabetes mellitus with diabetic peripheral angiopathy with gangrene; B35.1 Tinea unguium; Z79.4 Long term (current) use of insulin; Z89.412 Acquired absence of left great toe

== ENCOUNTER → 2017-06-07 | Outpatient (CLI) | payer OTHER ==
[~2017-06-07] VITALS: Ht 162.6 cm; Wt 89.1 kg
[~2017-06-07] MED LIST changes: -ASPI-1093 PO; +ASPI-1182 PO; +LIDOCAINE HCL 2% 5 ML JELLY TP ONE; -NITR0.4T27 SL; +NITR0.4T50 SL
[2017-06-07 13:42] VITALS: BP 134/56
== END | disposition home or self-care (01) ==
LOC: HBOWC 13:18
PROVIDERS: ATTEND Internal Medicine
DX: E11.621 Type 2 diabetes mellitus with foot ulcer (principal); L97.521 Non-pressure chronic ulcer of other part of left foot limited to breakdown of skin; E78.5 Hyperlipidemia, unspecified; I11.0 Hypertensive heart disease with heart failure; I50.9 Heart failure, unspecified; I25.2 Old myocardial infarction; E11.69 Type 2 diabetes mellitus with other specified complication; M86.8X8 Other osteomyelitis, other site; E11.40 Type 2 diabetes mellitus with diabetic neuropathy, unspecified; E11.52 Type 2 diabetes mellitus with diabetic peripheral angiopathy with gangrene; Z79.4 Long term (current) use of insulin; Z89.412 Acquired absence of left great toe
CPT/HCPCS: 11042

== ENCOUNTER → 2017-06-14 | Outpatient (CLI) | payer OTHER ==
[~2017-06-14] MED LIST changes: -CEPH500 PO; -LIDOCAINE HCL 2% 5 ML JELLY TP ONE; -NITR0.4T50 SL; -PERCT PO; -ZOLP10TA6 PO
[2017-06-14 14:11] VITALS: BP 133/60
== END | disposition home or self-care (01) ==
LOC: HBOWC 12:50
PROVIDERS: ATTEND Podiatrist
DX: E11.621 Type 2 diabetes mellitus with foot ulcer (principal); L97.521 Non-pressure chronic ulcer of other part of left foot limited to breakdown of skin; E11.40 Type 2 diabetes mellitus with diabetic neuropathy, unspecified; E11.52 Type 2 diabetes mellitus with diabetic peripheral angiopathy with gangrene; E11.69 Type 2 diabetes mellitus with other specified complication; M86.8X8 Other osteomyelitis, other site; I11.0 Hypertensive heart disease with heart failure; I50.9 Heart failure, unspecified; E78.5 Hyperlipidemia, unspecified; I25.2 Old myocardial infarction; Z79.4 Long term (current) use of insulin; Z89.412 Acquired absence of left great toe
CPT/HCPCS: 97597

== ENCOUNTER → 2017-06-21 | Outpatient (CLI) | payer OTHER ==
[2017-06-21 10:02] VITALS: BP 129/69
== END | disposition home or self-care (01) ==
LOC: HBOWC 09:12
PROVIDERS: ATTEND Internal Medicine
DX: E11.621 Type 2 diabetes mellitus with foot ulcer (principal); L97.521 Non-pressure chronic ulcer of other part of left foot limited to breakdown of skin; E11.52 Type 2 diabetes mellitus with diabetic peripheral angiopathy with gangrene; E11.40 Type 2 diabetes mellitus with diabetic neuropathy, unspecified; E11.69 Type 2 diabetes mellitus with other specified complication; M86.8X8 Other osteomyelitis, other site; L84 Corns and callosities; I11.0 Hypertensive heart disease with heart failure; I50.9 Heart failure, unspecified; I25.2 Old myocardial infarction; E78.5 Hyperlipidemia, unspecified; Z79.4 Long term (current) use of insulin; Z89.412 Acquired absence of left great toe

== ENCOUNTER 2018-08-19 19:45 | Emergency (ER) | payer OTHER, MEDICAID ==
[~2018-08-19] VITALS: Ht 160 cm; Wt 90.5 kg
[~2018-08-19 19:45] MED LIST changes: -ALPR0.5T8 PO; +AMIO200T44 PO; +CARV6 PO; +EZET10 PO; +FLUT15.88 NASAL; +FURO20 PO; -LIRA0.6P SQ; -LOSA50TA37 PO; +LOSA50TA64 PO; +METF-960 PO; -METF500T4 PO; -METO25TA6 PO; -METO50 PO; -NAPR125O4 PO; +PANT40TA25 PO; +SPIR25 PO; -ZOLP5 PO
[2018-08-19] MEDS ORDERED: ALPR0.5T8 PO (20:23)
[2018-08-19 21:39] VITALS: BP 135/52
== END 2018-08-19 22:06 | disposition home or self-care (01) ==
LOC: EMS 19:47
DX: F41.9 Anxiety disorder, unspecified (principal); E11.9 Type 2 diabetes mellitus without complications; E78.00 Pure hypercholesterolemia, unspecified; I11.9 Hypertensive heart disease without heart failure; I25.2 Old myocardial infarction; I25.10 Atherosclerotic heart disease of native coronary artery without angina pectoris; Z79.899 Other long term (current) drug therapy; Z79.82 Long term (current) use of aspirin; Z79.4 Long term (current) use of insulin; Z95.1 Presence of aortocoronary bypass graft

== ENCOUNTER 2018-08-29 15:39 | Inpatient (IN) | payer OTHER, MEDICAID ==
[~2018-08-29] VITALS: Ht 160 cm; Wt 92.2 kg
[~2018-08-29 15:39] MED LIST changes: +ALPR0.5T8 PO; -METF-960 PO; -SPIR25 PO
[2018-08-29 16:14] LABS: GLUCOSE,POINT OF CARE 229 MG/DL (70-110)
[2018-08-29] MEDS ORDERED: SODIUM CHLORIDE 0.9% 1,000 ML IV ONE (16:30)
[2018-08-29] MEDS ORDERED: PIPERACILLIN/TAZO 3.375 GM/D5W 50 ML IV ONE (16:30)
[2018-08-29 16:45] LABS: BASOPHILS % (AUTO) 0.3 % (0.0-2.0); EOSINOPHILS % (AUTO) 0.9 % (1.0-6.0); HEMATOCRIT 26.1 % (36-46); HEMOGLOBIN 8.6 g/dL (12.0-16.0); LYMPHOCYTES # (AUTO) 1.5 K/uL (1.0-4.8); LYMPHOCYTES % (AUTO) 11.9 % (22.0-44.0); MEAN CORPUSCULAR HEMOGLOBIN 30.5 pg (26.0-34.0); MEAN CORPUSCULAR VOLUME 93 fL (80-100); MONOCYTES % (AUTO) 8.1 % (2.0-9.0); NEUTROPHILS % (AUTO) 78.8 % (40.0-70.0); PLATELET COUNT (AUTO) 135 K/uL (150-450); RED BLOOD CELL COUNT(AUTO) 2.82 MIL/uL (4.00-5.20); RED CELL DISTRIBUTION WIDTH 14.1 % (11.5-14.5)
[2018-08-29 17:00] LABS: ALBUMIN 2.8 g/dL (3.4-5.0); BILIRUBIN,TOTAL 0.5 mg/dL (0.1-1.0); CALCIUM, TOTAL 8.4 mg/dL (8.8-10.5); CREATININE 2.35 mg/dL (0.60-1.30); TOTAL PROTEIN, SERUM 7.6 g/dL (6.4-8.2)
[2018-08-29 17:02] LABS: POTASSIUM 6.2 mmol/L (3.5-5.1)
[2018-08-29] MEDS ORDERED: CALCIUM GLUCONATE 100 MG/ML 10 ML IVP ONE (17:15)
[2018-08-29] MEDS ORDERED: INSULIN REGULAR, HUMAN 100 UNITS/ML IVP ONE (17:15)
[2018-08-29] MEDS ORDERED: DEXTROSE 50%-WATER 25 GM/50 ML SYRINGE IVP ONE (17:15)
[2018-08-29] MEDS ORDERED: SODIUM POLYSTYRENE SULFONATE 15 GM/60 ML SUSPENSION BOTTLE PO ONE (17:15)
[2018-08-29] MEDS ORDERED: ACETAMINOPHEN 325 MG TABLET PO PRN ×2 (17:45→23:00)
[2018-08-29] MEDS ORDERED: ONDANSETRON HCL 4 MG/2 ML VIAL IVP PRN ×2 (17:45→23:00)
[2018-08-29] MEDS ORDERED: MIDODRINE HCL 5 MG TABLET PO ONE (18:00)
[2018-08-29 18:39] LABS: GLUCOSE,POINT OF CARE 374 MG/DL (70-110)
[2018-08-29 19:48] LABS: GLUCOSE,POINT OF CARE 277 MG/DL (70-110)
[2018-08-29] MEDS ORDERED: NITROGLYCERIN 0.4 MG SUBLINGUAL TABLET #25 SL PRN (23:00)
[2018-08-29] MEDS ORDERED: ALBUTEROL SULFATE 2.5 MG/0.5 ML NEB SOLUTION NEB PRN (23:00)
[2018-08-29] MEDS ORDERED: HYDROCODONE/ACETAMINOPHEN 5-325 MG TABLET PO PRN (23:00)
[2018-08-29] MEDS ORDERED: IPRATROPIUM BROMIDE 0.5 MG/2.5 ML NEB SOLUTION NEB PRN (23:00)
[2018-08-29] MEDS ORDERED: ZOLPIDEM TARTRATE 5 MG TABLET PO PRN (23:00)
[2018-08-29] MEDS ORDERED: BISACODYL 10 MG RECTAL RECTAL SUPPOSITORY PR PRN (23:00)
[2018-08-29] MEDS ORDERED: MAGNESIUM HYDROXIDE SUSPENSION 30 ML UDCUP PO PRN (23:00)
[2018-08-29] MEDS ORDERED: DEXTROSE 50%-WATER 25 GM/50 ML SYRINGE IVP PRN (23:15)
[2018-08-29 23:45] VITALS: BP 116/52
[2018-08-29] MEDS ORDERED: SODIUM CHLORIDE 0.9% 250 ML IV ONE (23:48)
[2018-08-29] MEDS: PIPERACILLIN SODIUM/TAZOBACTAM 2.25 GM in DEXTROSE 5%-WATER 50 ML IV SCH (23:53)
[2018-08-29] MEDS: HEPARIN SODIUM,PORCINE 5,000 UNITS/ML VIAL SQ SCH (23:54)
[2018-08-30 00:31] LABS: CALCIUM, TOTAL 8.3 mg/dL (8.8-10.5); CREATININE 2.53 mg/dL (0.60-1.30); POTASSIUM 4.9 mmol/L (3.5-5.1)
[2018-08-30 04:56] VITALS: BP 118/59
[2018-08-30] MEDS: PIPERACILLIN SODIUM/TAZOBACTAM 2.25 GM in DEXTROSE 5%-WATER 50 ML IV SCH ×4 (05:29→23:31)
[2018-08-30] MEDS: INSULIN LISPRO 100 UNITS/ML SQ PRN ×3 (06:03→20:32)
[2018-08-30 07:24] LABS: BASOPHILS % (AUTO) 0.2 % (0.0-2.0); EOSINOPHILS % (AUTO) 1.3 % (1.0-6.0); HEMOGLOBIN 8.5 g/dL (12.0-16.0); LYMPHOCYTES # (AUTO) 1.1 K/uL (1.0-4.8); MEAN CORPUSCULAR HGB CONC 33.9 G/dL (31.0-37.0); MEAN CORPUSCULAR VOLUME 92 fL (80-100); MONOCYTES # (AUTO) 0.8 K/uL (0.1-1.0); MONOCYTES % (AUTO) 10.2 % (2.0-9.0); NEUTROPHILS # (AUTO) 5.6 K/uL (1.8-7.7); NEUTROPHILS % (AUTO) 73.3 % (40.0-70.0); PLATELET COUNT (AUTO) 116 K/uL (150-450); RED BLOOD CELL COUNT(AUTO) 2.73 MIL/uL (4.00-5.20)
[2018-08-30 07:29] LABS: GLUCOMETER DEV NAME(LOC) 5S.1; GLUCOSE,POINT OF CARE 254 MG/DL (70-110)
[2018-08-30 07:29] LABS: GLUCOMETER DEV NAME(LOC) 5S.1; GLUCOSE,POINT OF CARE 283 MG/DL (70-110)
[2018-08-30 07:38] LABS: HEMOGLOBIN A1C 8.4 % (4.5-6.2)
[2018-08-30 07:52] LABS: CALCIUM, TOTAL 7.9 mg/dL (8.8-10.5); CHOL/HDL RATIO 2.3 (3.9-5.7); CREATININE 2.36 mg/dL (0.60-1.30); FREE T4 (FREE THYROXINE) 1.26 ng/dL (0.76-1.46); MAGNESIUM 2.1 mg/dL (1.80-2.40); POTASSIUM 4.5 mmol/L (3.5-5.1); THYROID STIMULATING HORMONE 0.39 uIU/mL (0.36-3.74)
[2018-08-30 08:15] VITALS: BP 101/33
[2018-08-30] MEDS: ASPIRIN 81 MG EC TABLET PO SCH (09:00)
[2018-08-30] MEDS: CLOPIDOGREL BISULFATE 75 MG TABLET PO SCH (09:33)
[2018-08-30] MEDS: PANTOPRAZOLE SODIUM 40 MG DR TABLET PO SCH (09:33)
[2018-08-30] MEDS: AMIODARONE HCL 200 MG TABLET PO SCH (09:33)
[2018-08-30] MEDS: HEPARIN SODIUM,PORCINE 5,000 UNITS/ML VIAL SQ SCH ×2 (10:02→23:31)
[2018-08-30 11:25] VITALS: BP 127/66
[2018-08-30] MEDS ORDERED: VANCOMYCIN HCL 1 GM/VIAL ONE (12:34)
[2018-08-30] MEDS ORDERED: SODIUM CHLORIDE 0.9% 1,000 ML IV ONE ×2 (13:00→13:05)
[2018-08-30] MEDS ORDERED: SODIUM CHLORIDE 0.9% IRRIG BAG 1,000 ML IRRIG ONE (13:23)
[2018-08-30] MEDS ORDERED: BUPIVACAINE HCL/PF 0.5% 30 ML VIAL ONE (13:24)
[2018-08-30] MEDS ORDERED: BACITRACIN 50,000 UNITS/VIAL ONE (13:25)
[2018-08-30] MEDS ORDERED: LIDOCAINE/PF 1% 30 ML VIAL ONE (13:26)
[2018-08-30] MEDS ORDERED: KETAMINE HCL 50 MG/ML 10 ML VIAL ONE (13:29)
[2018-08-30 13:39] LABS: GLUCOMETER DEV NAME(LOC) SDS.; GLUCOSE,POINT OF CARE 132 MG/DL (70-110)
[2018-08-30] MEDS ORDERED: THROMBIN, BOVINE 20000 UNITS/VIAL POWDER TP ONE (13:43)
[2018-08-30] MEDS ORDERED: GELATIN SPONGE,ABSORBABLE 100 MM TP ONE (13:43)
[2018-08-30] MEDS ORDERED: MEPERIDINE-PF 25 MG/ML VIAL IVP PRN (14:15)
[2018-08-30] MEDS ORDERED: HYDROmorphone 2 MG/ML SYRINGE IVP PRN (14:15)
[2018-08-30] MEDS ORDERED: FentaNYL CITRATE-PF 100 MCG/2 ML VIAL IVP PRN (14:15)
[2018-08-30] MEDS ORDERED: VANCOMYCIN HCL 750 MG in DEXTROSE 5%-WATER 250 ML IV ONE (14:30)
[2018-08-30 15:33] VITALS: BP 129/60
[2018-08-30 15:39] LABS: GLUCOMETER DEV NAME(LOC) 5S.1; GLUCOSE,POINT OF CARE 140 MG/DL (70-110)
[2018-08-30] MEDS: HYDROCODONE/ACETAMINOPHEN 5-325 MG TABLET PO PRN ×2 (15:47→23:40)
[2018-08-30] MEDS: SODIUM CHLORIDE 0.45% 1,000 ML IV SCH (17:48)
[2018-08-30 19:20] VITALS: BP 112/54
[2018-08-30 19:39] LABS: GLUCOMETER DEV NAME(LOC) 5S.1; GLUCOSE,POINT OF CARE 199 MG/DL (70-110)
[2018-08-30] MEDS: EZETIMIBE 10 MG TABLET PO SCH (20:30)
[2018-08-30] MEDS: ATORVASTATIN CALCIUM 40 MG TABLET PO SCH (20:30)
[2018-08-30] MEDS ORDERED: INSULIN GLARGINE,HUM.REC.ANLOG 100 UNITS/ML SQ SCH ×2 (21:00)
[2018-08-31] VITALS (7 sets, daily range): BP systolic 113–138; BP diastolic 44–72
[2018-08-31] MEDS ORDERED: LIDOCAINE/PF 2% 5 ML VIAL IM ONE (05:31)
[2018-08-31] MEDS ORDERED: PROPOFOL 1% 20 ML VIAL IVP ONE (05:31)
[2018-08-31] MEDS ORDERED: MIDAZOLAM HCL 2 MG/2 ML VIAL IVP ONE (05:31)
[2018-08-31] MEDS: PIPERACILLIN SODIUM/TAZOBACTAM 2.25 GM in DEXTROSE 5%-WATER 50 ML IV SCH ×2 (05:49→11:29)
[2018-08-31] MEDS: INSULIN LISPRO 100 UNITS/ML SQ PRN ×2 (06:05→22:05)
[2018-08-31 06:19] LABS: CALCIUM, TOTAL 7.9 mg/dL (8.8-10.5); CREATININE 2.11 mg/dL (0.60-1.30); MAGNESIUM 1.9 mg/dL (1.80-2.40); POTASSIUM 4.5 mmol/L (3.5-5.1)
[2018-08-31 06:22] LABS: BASOPHILS % (AUTO) 0.3 % (0.0-2.0); EOSINOPHILS % (AUTO) 1.6 % (1.0-6.0); HEMATOCRIT 24.5 % (36-46); HEMOGLOBIN 8.2 g/dL (12.0-16.0); LYMPHOCYTES # (AUTO) 1.4 K/uL (1.0-4.8); LYMPHOCYTES % (AUTO) 13.9 % (22.0-44.0); MEAN CORPUSCULAR HEMOGLOBIN 30.7 pg (26.0-34.0); MEAN CORPUSCULAR HGB CONC 33.3 G/dL (31.0-37.0); MEAN CORPUSCULAR VOLUME 92 fL (80-100); MONOCYTES % (AUTO) 10.3 % (2.0-9.0); NEUTROPHILS # (AUTO) 7.2 K/uL (1.8-7.7); NEUTROPHILS % (AUTO) 73.9 % (40.0-70.0); PLATELET COUNT (AUTO) 129 K/uL (150-450); RED BLOOD CELL COUNT(AUTO) 2.67 MIL/uL (4.00-5.20); RED CELL DISTRIBUTION WIDTH 14.3 % (11.5-14.5)
[2018-08-31 08:04] LABS: GLUCOMETER DEV NAME(LOC) 5S.2; GLUCOSE,POINT OF CARE 305 MG/DL (70-110)
[2018-08-31 08:09] LABS: GLUCOMETER DEV NAME(LOC) 5S.1; GLUCOSE,POINT OF CARE 240 MG/DL (70-110)
[2018-08-31] MEDS: VANCOMYCIN HCL 750 MG in DEXTROSE 5%-WATER 250 ML IV SCH (08:24)
[2018-08-31] MEDS ORDERED: ALPRAZolam 0.5 MG TABLET PO PRN (08:30)
[2018-08-31] MEDS: CLOPIDOGREL BISULFATE 75 MG TABLET PO SCH (09:15)
[2018-08-31] MEDS: AMIODARONE HCL 200 MG TABLET PO SCH (09:15)
[2018-08-31] MEDS: ASPIRIN 81 MG EC TABLET PO SCH (09:15)
[2018-08-31] MEDS: CARVEDILOL 6.25 MG TABLET PO SCH (09:15)
[2018-08-31] MEDS: PANTOPRAZOLE SODIUM 40 MG DR TABLET PO SCH (09:15)
[2018-08-31] MEDS: HYDROCODONE/ACETAMINOPHEN 5-325 MG TABLET PO PRN (09:24)
[2018-08-31] MEDS: HEPARIN SODIUM,PORCINE 5,000 UNITS/ML VIAL SQ SCH ×2 (10:15→23:28)
[2018-08-31] MEDS: INSULIN LISPRO 100 UNITS/ML SQ SCH ×2 (12:11→17:31)
[2018-08-31] MEDS: SODIUM CHLORIDE 0.45% 1,000 ML IV SCH (15:47)
[2018-08-31 20:29] LABS: GLUCOMETER DEV NAME(LOC) 5S.1; GLUCOSE,POINT OF CARE 236 MG/DL (70-110)
[2018-08-31 20:29] LABS: GLUCOMETER DEV NAME(LOC) 5S.1; GLUCOSE,POINT OF CARE 236 MG/DL (70-110)
[2018-08-31] MEDS: EZETIMIBE 10 MG TABLET PO SCH (20:47)
[2018-08-31] MEDS: ATORVASTATIN CALCIUM 40 MG TABLET PO SCH (20:48)
[2018-08-31] MEDS: INSULIN GLARGINE,HUM.REC.ANLOG 100 UNITS/ML SQ SCH (22:08)
[2018-09-01 01:39] LABS: GLUCOMETER DEV NAME(LOC) 5S.1; GLUCOSE,POINT OF CARE 240 MG/DL (70-110)
[2018-09-01 03:30] VITALS: BP 137/64
[2018-09-01] MEDS: HYDROCODONE/ACETAMINOPHEN 5-325 MG TABLET PO PRN (03:53)
[2018-09-01] MEDS: SODIUM CHLORIDE 0.45% 1,000 ML IV SCH ×2 (06:11→23:03)
[2018-09-01 06:32] LABS: BASOPHILS % (AUTO) 0.4 % (0.0-2.0); EOSINOPHILS % (AUTO) 2.8 % (1.0-6.0); HEMATOCRIT 24.5 % (36-46); HEMOGLOBIN 8.2 g/dL (12.0-16.0); LYMPHOCYTES # (AUTO) 1.8 K/uL (1.0-4.8); LYMPHOCYTES % (AUTO) 21.1 % (22.0-44.0); MEAN CORPUSCULAR HGB CONC 33.2 G/dL (31.0-37.0); MEAN CORPUSCULAR VOLUME 93 fL (80-100); MONOCYTES # (AUTO) 0.7 K/uL (0.1-1.0); MONOCYTES % (AUTO) 8.6 % (2.0-9.0); NEUTROPHILS # (AUTO) 5.6 K/uL (1.8-7.7); NEUTROPHILS % (AUTO) 67.1 % (40.0-70.0); PLATELET COUNT (AUTO) 130 K/uL (150-450); RED BLOOD CELL COUNT(AUTO) 2.64 MIL/uL (4.00-5.20)
[2018-09-01] MEDS: INSULIN LISPRO 100 UNITS/ML SQ PRN ×2 (06:38→20:49)
[2018-09-01] MEDS: INSULIN LISPRO 100 UNITS/ML SQ SCH ×3 (06:38→17:21)
[2018-09-01 07:21] LABS: ALBUMIN 2.3 g/dL (3.4-5.0); BILIRUBIN,TOTAL 0.4 mg/dL (0.1-1.0); CALCIUM, TOTAL 8.2 mg/dL (8.8-10.5); CREATININE 1.91 mg/dL (0.60-1.30); MAGNESIUM 2.2 mg/dL (1.80-2.40); PHOSPHORUS 3.9 mg/dL (2.5-4.9); POTASSIUM 4.2 mmol/L (3.5-5.1); TOTAL PROTEIN, SERUM 7.1 g/dL (6.4-8.2)
[2018-09-01 08:23] VITALS: BP 119/54
[2018-09-01] MEDS ORDERED: LOSARTAN POTASSIUM 50 MG TABLET PO SCH (09:00)
[2018-09-01] MEDS: AMIODARONE HCL 200 MG TABLET PO SCH ×2 (09:00→15:03)
[2018-09-01] MEDS: CLOPIDOGREL BISULFATE 75 MG TABLET PO SCH (09:20)
[2018-09-01] MEDS: ASPIRIN 81 MG EC TABLET PO SCH (09:21)
[2018-09-01] MEDS: PANTOPRAZOLE SODIUM 40 MG DR TABLET PO SCH (09:21)
[2018-09-01] MEDS: HEPARIN SODIUM,PORCINE 5,000 UNITS/ML VIAL SQ SCH ×2 (09:22→23:02)
[2018-09-01] MEDS: VANCOMYCIN HCL 750 MG in DEXTROSE 5%-WATER 250 ML IV SCH (09:24)
[2018-09-01] MEDS: CARVEDILOL 6.25 MG TABLET PO SCH (11:40)
[2018-09-01 12:01] VITALS: BP 135/59
[2018-09-01 12:19] LABS: GLUCOMETER DEV NAME(LOC) 5S.2; GLUCOSE,POINT OF CARE 149 MG/DL (70-110)
[2018-09-01 12:20] LABS: GLUCOMETER DEV NAME(LOC) 5S.2; GLUCOSE,POINT OF CARE 184 MG/DL (70-110)
[2018-09-01 16:23] VITALS: BP 97/40
[2018-09-01 19:13] VITALS: BP 104/47
[2018-09-01] MEDS: EZETIMIBE 10 MG TABLET PO SCH (20:44)
[2018-09-01] MEDS: INSULIN GLARGINE,HUM.REC.ANLOG 100 UNITS/ML SQ SCH (20:45)
[2018-09-01] MEDS: ATORVASTATIN CALCIUM 40 MG TABLET PO SCH (20:47)
[2018-09-01 22:19] LABS: GLUCOMETER DEV NAME(LOC) 5S.2; GLUCOSE,POINT OF CARE 201 MG/DL (70-110)
[2018-09-01 22:20] LABS: GLUCOMETER DEV NAME(LOC) 5S.1; GLUCOSE,POINT OF CARE 229 MG/DL (70-110)
[2018-09-01 23:10] VITALS: BP 137/49
[2018-09-02] MEDS: HYDROCODONE/ACETAMINOPHEN 5-325 MG TABLET PO PRN (01:26)
[2018-09-02 05:38] LABS: CALCIUM, TOTAL 8.3 mg/dL (8.8-10.5); CREATININE 1.59 mg/dL (0.60-1.30); POTASSIUM 4.3 mmol/L (3.5-5.1); VANCOMYCIN,RANDOM 16.3 mcg/mL (25.0-50.0)
[2018-09-02 05:44] VITALS: BP 112/47
[2018-09-02] MEDS: INSULIN LISPRO 100 UNITS/ML SQ SCH ×3 (06:33→17:22)
[2018-09-02 08:24] VITALS: BP 100/43
[2018-09-02] MEDS: CLOPIDOGREL BISULFATE 75 MG TABLET PO SCH (08:29)
[2018-09-02] MEDS: PANTOPRAZOLE SODIUM 40 MG DR TABLET PO SCH (08:29)
[2018-09-02] MEDS: VANCOMYCIN HCL 750 MG in DEXTROSE 5%-WATER 250 ML IV SCH (08:29)
[2018-09-02] MEDS: ASPIRIN 81 MG EC TABLET PO SCH (08:30)
[2018-09-02] MEDS: HEPARIN SODIUM,PORCINE 5,000 UNITS/ML VIAL SQ SCH ×2 (08:32→23:46)
[2018-09-02] MEDS: CARVEDILOL 6.25 MG TABLET PO SCH (09:00)
[2018-09-02 10:58] LABS: GLUCOMETER DEV NAME(LOC) 5S.2; GLUCOSE,POINT OF CARE 120 MG/DL (70-110)
[2018-09-02 11:27] VITALS: BP 108/48
[2018-09-02] MEDS: AMIODARONE HCL 200 MG TABLET PO SCH (11:38)
[2018-09-02 15:15] LABS: GLUCOMETER DEV NAME(LOC) 5S.1; GLUCOSE,POINT OF CARE 212 MG/DL (70-110)
[2018-09-02 15:55] VITALS: BP 112/47
[2018-09-02 19:16] VITALS: BP 128/52
[2018-09-02] MEDS: INSULIN LISPRO 100 UNITS/ML SQ PRN (20:46)
[2018-09-02] MEDS: ATORVASTATIN CALCIUM 40 MG TABLET PO SCH (20:47)
[2018-09-02] MEDS: EZETIMIBE 10 MG TABLET PO SCH (20:47)
[2018-09-02] MEDS: INSULIN GLARGINE,HUM.REC.ANLOG 100 UNITS/ML SQ SCH (20:47)
[2018-09-02 23:45] VITALS: BP 134/59
[2018-09-03 04:21] VITALS: BP 127/54
[2018-09-03 07:03] LABS: CALCIUM, TOTAL 8.8 mg/dL (8.8-10.5); CREATININE 1.23 mg/dL (0.60-1.30); MAGNESIUM 2.5 mg/dL (1.80-2.40); PHOSPHORUS 3.1 mg/dL (2.5-4.9); POTASSIUM 4.6 mmol/L (3.5-5.1)
[2018-09-03] MEDS: INSULIN LISPRO 100 UNITS/ML SQ SCH ×3 (07:30→18:25)
[2018-09-03 07:42] LABS: VANCOMYCIN,RANDOM 15.4 mcg/mL (25.0-50.0)
[2018-09-03 08:03] VITALS: BP 133/55
[2018-09-03 08:04] LABS: GLUCOMETER DEV NAME(LOC) 5S.2; GLUCOSE,POINT OF CARE 113 MG/DL (70-110)
[2018-09-03 08:04] LABS: GLUCOMETER DEV NAME(LOC) 5S.2; GLUCOSE,POINT OF CARE 146 MG/DL (70-110)
[2018-09-03 08:04] LABS: GLUCOMETER DEV NAME(LOC) 5S.2; GLUCOSE,POINT OF CARE 151 MG/DL (70-110)
[2018-09-03] MEDS: CLOPIDOGREL BISULFATE 75 MG TABLET PO SCH (08:59)
[2018-09-03] MEDS: FUROSEMIDE 20 MG TABLET PO SCH (08:59)
[2018-09-03] MEDS: PANTOPRAZOLE SODIUM 40 MG DR TABLET PO SCH (08:59)
[2018-09-03] MEDS: ASPIRIN 81 MG EC TABLET PO SCH (08:59)
[2018-09-03] MEDS: AMIODARONE HCL 200 MG TABLET PO SCH (09:00)
[2018-09-03] MEDS: VANCOMYCIN HCL 750 MG in DEXTROSE 5%-WATER 250 ML IV SCH (09:01)
[2018-09-03] MEDS: HEPARIN SODIUM,PORCINE 5,000 UNITS/ML VIAL SQ SCH ×2 (09:03→21:21)
[2018-09-03] MEDS ORDERED: SODIUM CHLORIDE 0.9% 250 ML IV ONE (09:51)
[2018-09-03 11:34] VITALS: BP 157/57
[2018-09-03] MEDS: CARVEDILOL 6.25 MG TABLET PO SCH (12:15)
[2018-09-03 13:24] LABS: GLUCOMETER DEV NAME(LOC) 5S.1; GLUCOSE,POINT OF CARE 100 MG/DL (70-110)
[2018-09-03 13:29] LABS: GLUCOMETER DEV NAME(LOC) 5S.1; GLUCOSE,POINT OF CARE 167 MG/DL (70-110)
[2018-09-03 16:20] VITALS: BP 140/62
[2018-09-03 18:35] LABS: GLUCOMETER DEV NAME(LOC) 5S.2; GLUCOSE,POINT OF CARE 158 MG/DL (70-110)
[2018-09-03 19:55] VITALS: BP 132/54
[2018-09-03 21:14] LABS: GLUCOMETER DEV NAME(LOC) 5S.1; GLUCOSE,POINT OF CARE 129 MG/DL (70-110)
[2018-09-03] MEDS: ATORVASTATIN CALCIUM 40 MG TABLET PO SCH (21:20)
[2018-09-03] MEDS: EZETIMIBE 10 MG TABLET PO SCH (21:20)
[2018-09-03] MEDS: INSULIN GLARGINE,HUM.REC.ANLOG 100 UNITS/ML SQ SCH (21:21)
[2018-09-03 23:13] VITALS: BP 124/52
[2018-09-04 06:59] LABS: GLUCOMETER DEV NAME(LOC) 5S.2; GLUCOSE,POINT OF CARE 158 MG/DL (70-110)
[2018-09-04 06:59] LABS: GLUCOMETER DEV NAME(LOC) 5S.2; GLUCOSE,POINT OF CARE 57 MG/DL (70-110)
[2018-09-04 07:34] VITALS: BP 149/49
[2018-09-04 07:34] LABS: CALCIUM, TOTAL 8.8 mg/dL (8.8-10.5); CREATININE 1.27 mg/dL (0.60-1.30); MAGNESIUM 2.2 mg/dL (1.80-2.40); PHOSPHORUS 3.2 mg/dL (2.5-4.9); POTASSIUM 4.3 mmol/L (3.5-5.1)
[2018-09-04] MEDS: ASPIRIN 81 MG EC TABLET PO SCH (08:52)
[2018-09-04] MEDS: PANTOPRAZOLE SODIUM 40 MG DR TABLET PO SCH (08:52)
[2018-09-04] MEDS: CLOPIDOGREL BISULFATE 75 MG TABLET PO SCH (08:52)
[2018-09-04] MEDS: FUROSEMIDE 20 MG TABLET PO SCH (08:52)
[2018-09-04] MEDS: VANCOMYCIN HCL 750 MG in DEXTROSE 5%-WATER 250 ML IV SCH (08:53)
[2018-09-04] MEDS: INSULIN LISPRO 100 UNITS/ML SQ SCH ×2 (08:56→12:16)
[2018-09-04] MEDS: CARVEDILOL 6.25 MG TABLET PO SCH (08:57)
[2018-09-04 11:45] VITALS: BP 140/57
[2018-09-04] MEDS: HEPARIN SODIUM,PORCINE 5,000 UNITS/ML VIAL SQ SCH (12:10)
[2018-09-04] MEDS: AMIODARONE HCL 200 MG TABLET PO SCH (14:29)
[2018-09-04] MEDS ORDERED: VANC750P8 IV (15:33)
[2018-09-04] MEDS ORDERED: INSLAN SQ (15:35)
[2018-09-04] MEDS ORDERED: INSU100V SQ ×2 (15:36→17:57)
[2018-09-04] MEDS ORDERED: ACET-2902 PO (15:38)
[2018-09-04 16:18] VITALS: BP 144/47
[2018-09-04] MEDS ORDERED: ALBU2.5V2 NEB (16:33)
[2018-09-04] MEDS ORDERED: BISA10S PR (16:34)
[2018-09-04] MEDS ORDERED: HYDR-4119 PO ×2 (16:40→16:41)
[2018-09-04] MEDS ORDERED: MOM30 PO (17:27)
[2018-09-04] MEDS ORDERED: ONDA4 PO (17:27)
[2018-09-04] MEDS ORDERED: ZOLP5 PO (17:28)
[2018-09-04] MEDS ORDERED: IPRNEB IH (17:43)
[2018-09-05 06:20] LABS: GLUCOMETER DEV NAME(LOC) 5S.1; GLUCOSE,POINT OF CARE 188 MG/DL (70-110)
[2018-09-05] MEDS ORDERED: LOSARTAN POTASSIUM 25 MG TABLET PO SCH (09:00)
[2018-09-05] MEDS ORDERED: EPOETIN ALFA 10,000 UNITS/ML VIAL SQ SCH (09:00)
[2018-09-05] MEDS ORDERED: ASPIRIN 81 MG EC TABLET PO SCH (09:00)
[2018-09-05 09:49] LABS: GLUCOMETER DEV NAME(LOC) 5S.2; GLUCOSE,POINT OF CARE 174 MG/DL (70-110)
== END 2018-09-04 18:00 | DRG 854 ==
LOC: EMS 15:40 → 5S 18:20
PROVIDERS: ADMIT Internal Medicine Geriatric Medicine; ATTEND Internal Medicine Geriatric Medicine
PROC: 0QBN0ZZ Excision of Right Metatarsal, Open Approach (ICD-10-PCS; principal; 2018-08-30 13:37)
PROC: B54NZZA Ultrasonography of Left Upper Extremity Veins, Guidance (ICD-10-PCS; 2018-09-04)
PROC: 05HY33Z Insertion of Infusion Device into Upper Vein, Percutaneous Approach (ICD-10-PCS; 2018-09-04)
DX: A41.02 Sepsis due to Methicillin resistant Staphylococcus aureus (principal); N17.9 Acute kidney failure, unspecified; E44.0 Moderate protein-calorie malnutrition; M86.8X7 Other osteomyelitis, ankle and foot; L02.611 Cutaneous abscess of right foot; I13.0 Hypertensive heart and chronic kidney disease with heart failure and stage 1 through stage 4 chronic kidney disease, or unspecified chronic kidney disease; N18.4 Chronic kidney disease, stage 4 (severe); T81.40XA Infection following a procedure, unspecified, initial encounter; B95.62 Methicillin resistant Staphylococcus aureus infection as the cause of diseases classified elsewhere; E87.5 Hyperkalemia; E11.65 Type 2 diabetes mellitus with hyperglycemia; E78.5 Hyperlipidemia, unspecified; I25.10 Atherosclerotic heart disease of native coronary artery without angina pectoris; D64.9 Anemia, unspecified; F41.9 Anxiety disorder, unspecified; E78.00 Pure hypercholesterolemia, unspecified; E11.22 Type 2 diabetes mellitus with diabetic chronic kidney disease; M10.9 Gout, unspecified; E11.51 Type 2 diabetes mellitus with diabetic peripheral angiopathy without gangrene; I25.5 Ischemic cardiomyopathy; I50.9 Heart failure, unspecified; E11.69 Type 2 diabetes mellitus with other specified complication; Z68.36 Body mass index [BMI] 36.0-36.9, adult; I25.2 Old myocardial infarction; Z86.74 Personal history of sudden cardiac arrest; Z95.1 Presence of aortocoronary bypass graft; Z89.412 Acquired absence of left great toe; Z95.810 Presence of automatic (implantable) cardiac defibrillator; Z91.19 Patient's noncompliance with other medical treatment and regimen; Y83.5 Amputation of limb(s) as the cause of abnormal reaction of the patient, or of later complication, without mention of misadventure at the time of the procedure; Y92.89 Other specified places as the place of occurrence of the external cause
CPT/HCPCS: 36245; 36569; 76937; 83036; 83735; 84100; 84439; 84443; 87040; 87070; 87081; 87205; 88305; 88311; 93005; 96365; G0378; J0610; J0885; J1644; J1815; J2250; J2543; J2704; J3370; J3490; J7030; J7050; J7060

== ENCOUNTER 2018-11-18 20:53 | Emergency (ER) | payer MEDICARE, MEDICAID ==
[~2018-11-18] VITALS: Ht 160 cm; Wt 86.8 kg
[~2018-11-18 20:53] MED LIST changes: +ACET-2902 PO; +ALBU2.5V2 NEB; +BENZ-51 PO; +BISA10S PR; +BUDE0.5A3 NEB; +CARV3 PO; -CARV6 PO; -CLOP75 PO; +CLOP75TA3 PO; +DEXT15SY3 PO; -FLUT15.88 NASAL; +FURO20 IVP; +GUAIF600 PO; +HYDR-4119 PO; +INSLAN SQ; -INSNOV SQ; +INSU100V SQ; -INSU100V12 SQ; +IPRNEB IH; +LOSA25TA41 PO; -LOSA50TA64 PO; +MOM30 PO; +ONDA4 PO; +PRED20 PO; +VANC750P8 IV; +ZOLP5 PO
[2018-11-18 21:19] LABS: GLUCOSE,POINT OF CARE 176 MG/DL (70-110)
[2018-11-18 21:58] LABS: BASOPHILS % (AUTO) 0.6 % (0.0-2.0); EOSINOPHILS % (AUTO) 1.2 % (1.0-6.0); HEMATOCRIT 37.7 % (36-46); HEMOGLOBIN 12.2 g/dL (12.0-16.0); LYMPHOCYTES # (AUTO) 1.6 K/uL (1.0-4.8); LYMPHOCYTES % (AUTO) 25.4 % (22.0-44.0); MEAN CORPUSCULAR HEMOGLOBIN 28.9 pg (26.0-34.0); MEAN CORPUSCULAR HGB CONC 32.3 G/dL (31.0-37.0); MEAN CORPUSCULAR VOLUME 89 fL (80-100); MONOCYTES # (AUTO) 0.5 K/uL (0.1-1.0); MONOCYTES % (AUTO) 8.3 % (2.0-9.0); NEUTROPHILS % (AUTO) 64.5 % (40.0-70.0); PLATELET COUNT (AUTO) 208 K/uL (150-450); RED BLOOD CELL COUNT(AUTO) 4.22 MIL/uL (4.00-5.20); RED CELL DISTRIBUTION WIDTH 15.9 % (11.5-14.5)
[2018-11-18 22:05] LABS: CALCIUM, TOTAL 9.8 mg/dL (8.8-10.5); CREATININE 1.78 mg/dL (0.60-1.30); POTASSIUM 4.5 mmol/L (3.5-5.1)
[2018-11-18 22:11] LABS: ALBUMIN 3.7 g/dL (3.4-5.0); BILIRUBIN,TOTAL 0.7 mg/dL (0.1-1.0); TOTAL PROTEIN, SERUM 8.6 g/dL (6.4-8.2)
[2018-11-18 23:02] LABS: APPEARANCE,URINE CLOUDY (CLEAR); BILIRUBIN,URINE NEGATIVE (NEGATIVE); GLUCOSE, URINE (UA) NEGATIVE (NEGATIVE); KETONES,URINE NEGATIVE (NEGATIVE); LEUKOCYTE ESTERASE ,URINE SMALL (NEGATIVE); NITRATE,URINE NEGATIVE (NEGATIVE); OCCULT BLOOD,URINE SMALL (NEGATIVE); PH,URINE 5.5 (5.0-8.0); PROTEIN,URINE SEE CONFIRM (NEGATIVE); UROBILINOGEN,URINE 0.2 mg/dL (<=1.0)
[2018-11-18 23:10] LABS: BACTERIA,URINE None Seen /HPF (None Seen); SQUAMOUS EPITHELIAL CELL,UR Moderate /LPF (None Seen)
[2018-11-18 23:11] LABS: SULFOSALICYLIC ACID,URINE 2+ (Negative)
[2018-11-19] MEDS ORDERED: PHENAZOPYRIDINE HCL 100 MG TABLET PO ONE (01:45)
[2018-11-19] MEDS ORDERED: SULFAMETHOX/TRIMETH DS 800-160 MG/TABLET PO ONE (01:45)
[2018-11-19 02:05] VITALS: BP 105/62
== END 2018-11-19 02:37 | disposition home or self-care (01) ==
LOC: EMS 20:53
DX: N39.0 Urinary tract infection, site not specified (principal); N28.9 Disorder of kidney and ureter, unspecified; I48.91 Unspecified atrial fibrillation; I25.10 Atherosclerotic heart disease of native coronary artery without angina pectoris; E11.9 Type 2 diabetes mellitus without complications; I11.9 Hypertensive heart disease without heart failure; I25.2 Old myocardial infarction; E78.00 Pure hypercholesterolemia, unspecified; F41.9 Anxiety disorder, unspecified; Z79.899 Other long term (current) drug therapy; Z79.4 Long term (current) use of insulin; Z79.82 Long term (current) use of aspirin
CPT/HCPCS: 74176; 87086

== ENCOUNTER 2019-02-19 13:54 | Inpatient (IN) | payer MEDICARE, OTHER ==
[~2019-02-19] VITALS: Ht 160 cm; Wt 88.2 kg
[~2019-02-19 13:54] MED LIST changes: -BENZ-51 PO; -BISA10S PR; +BISA10SU11 PR; -DEXT15SY3 PO; -FURO20 IVP; -HYDR-4119 PO; -MOM30 PO; -PANT40TA25 PO; +PHEN-922 PO; -PRED20 PO; +SULF1TAB41 PO; -VANC750P8 IV; -ZOLP5 PO
[2019-02-19] MEDS ORDERED: LEVO5TAB29 PO (14:29)
[2019-02-19] MEDS ORDERED: VITAD1000 PO (14:29)
[2019-02-19] MEDS ORDERED: INSNOV SQ (14:29)
[2019-02-19] MEDS ORDERED: HYDR-3110 PO (14:29)
[2019-02-19] MEDS ORDERED: TERA1CAP7 PO (14:29)
[2019-02-19] MEDS ORDERED: AMLO2.5T4 PO (14:29)
[2019-02-19] MEDS ORDERED: ASCO500 PO (14:29)
[2019-02-19 15:59] LABS: BASOPHILS % (AUTO) 0.5 % (0.0-2.0); EOSINOPHILS % (AUTO) 1.1 % (1.0-6.0); HEMATOCRIT 31.5 % (36-46); LYMPHOCYTES # (AUTO) 1.2 K/uL (1.0-4.8); LYMPHOCYTES % (AUTO) 17.9 % (22.0-44.0); MEAN CORPUSCULAR HEMOGLOBIN 30.6 pg (26.0-34.0); MEAN CORPUSCULAR HGB CONC 31.8 G/dL (31.0-37.0); MEAN CORPUSCULAR VOLUME 96 fL (80-100); MONOCYTES # (AUTO) 0.6 K/uL (0.1-1.0); MONOCYTES % (AUTO) 9.7 % (2.0-9.0); NEUTROPHILS # (AUTO) 4.7 K/uL (1.8-7.7); NEUTROPHILS % (AUTO) 70.8 % (40.0-70.0); PLATELET COUNT (AUTO) 149 K/uL (150-450); RED BLOOD CELL COUNT(AUTO) 3.27 MIL/uL (4.00-5.20); RED CELL DISTRIBUTION WIDTH 17.1 % (11.5-14.5)
[2019-02-19 16:15] LABS: GLUCOSE,POINT OF CARE 170 MG/DL (70-110)
[2019-02-19 16:35] LABS: CREATININE 1.85 mg/dL (0.60-1.30); POTASSIUM 4.3 mmol/L (3.5-5.1)
[2019-02-19 16:41] LABS: ALBUMIN 2.6 g/dL (3.4-5.0); BILIRUBIN,TOTAL 1.9 mg/dL (0.1-1.0); TOTAL PROTEIN, SERUM 7.5 g/dL (6.4-8.2)
[2019-02-19] MEDS ORDERED: FUROSEMIDE 40 MG/4 ML VIAL IVP ONE (17:45)
[2019-02-19] MEDS ORDERED: ONDANSETRON HCL 4 MG/2 ML VIAL IVP PRN ×2 (19:00→22:30)
[2019-02-19] MEDS ORDERED: ACETAMINOPHEN 325 MG TABLET PO PRN ×2 (19:00→22:30)
[2019-02-19] MEDS ORDERED: 0.9% SODIUM CHLORIDE 10 ML SYRINGE IVP PRN (19:00)
[2019-02-19 20:59] VITALS: BP 146/55
[2019-02-19] MEDS ORDERED: NITROGLYCERIN 0.4 MG SUBLINGUAL TABLET #25 SL PRN (22:15)
[2019-02-19] MEDS ORDERED: HydrOXYzine HCL 10 MG TABLET PO PRN (22:15)
[2019-02-19] MEDS ORDERED: DEXTROSE 50%-WATER 25 GM/50 ML SYRINGE IVP PRN (22:15)
[2019-02-19] MEDS ORDERED: ALBUTEROL SULFATE 2.5 MG/0.5 ML NEB SOLUTION NEB PRN (22:30)
[2019-02-19] MEDS ORDERED: MAGNESIUM HYDROXIDE SUSPENSION 30 ML UDCUP PO PRN (22:30)
[2019-02-19] MEDS ORDERED: IPRATROPIUM BROMIDE 0.5 MG/2.5 ML NEB SOLUTION NEB PRN (22:30)
[2019-02-19] MEDS ORDERED: BISACODYL 10 MG RECTAL RECTAL SUPPOSITORY PR PRN (22:30)
[2019-02-19] MEDS ORDERED: ZOLPIDEM TARTRATE 5 MG TABLET PO PRN (22:30)
[2019-02-19 23:04] VITALS: BP 139/65
[2019-02-20 02:45] LABS: GLUCOMETER DEV NAME(LOC) 5N.2; GLUCOSE,POINT OF CARE 119 MG/DL (70-110)
[2019-02-20 03:09] VITALS: BP 138/59
[2019-02-20 06:35] LABS: BASOPHILS % (AUTO) 0.6 % (0.0-2.0); EOSINOPHILS % (AUTO) 1.2 % (1.0-6.0); HEMATOCRIT 28.2 % (36-46); HEMOGLOBIN 9.4 g/dL (12.0-16.0); LYMPHOCYTES # (AUTO) 1.3 K/uL (1.0-4.8); LYMPHOCYTES % (AUTO) 18.7 % (22.0-44.0); MEAN CORPUSCULAR HEMOGLOBIN 31.8 pg (26.0-34.0); MEAN CORPUSCULAR HGB CONC 33.4 G/dL (31.0-37.0); MEAN CORPUSCULAR VOLUME 95 fL (80-100); MONOCYTES # (AUTO) 0.7 K/uL (0.1-1.0); MONOCYTES % (AUTO) 10.7 % (2.0-9.0); NEUTROPHILS # (AUTO) 4.7 K/uL (1.8-7.7); NEUTROPHILS % (AUTO) 68.8 % (40.0-70.0); PLATELET COUNT (AUTO) 144 K/uL (150-450); RED BLOOD CELL COUNT(AUTO) 2.96 MIL/uL (4.00-5.20); RED CELL DISTRIBUTION WIDTH 16.7 % (11.5-14.5)
[2019-02-20 07:15] VITALS: BP 130/56
[2019-02-20 07:31] LABS: HEMOGLOBIN A1C 6.7 % (4.5-6.2)
[2019-02-20 08:12] LABS: ALBUMIN 2.2 g/dL (3.4-5.0); BILIRUBIN,TOTAL 1.6 mg/dL (0.1-1.0); CHOL/HDL RATIO 4.9 (3.9-5.7); CREATININE 1.65 mg/dL (0.60-1.30); FREE T4 (FREE THYROXINE) 2.14 ng/dL (0.76-1.46); MAGNESIUM 1.9 mg/dL (1.80-2.40); THYROID STIMULATING HORMONE 1.85 uIU/mL (0.36-3.74); TOTAL PROTEIN, SERUM 6.9 g/dL (6.4-8.2)
[2019-02-20] MEDS: CHOLECALCIFEROL (VIT D3) 1,000 UNITS TABLET PO SCH (08:59)
[2019-02-20] MEDS: ASPIRIN 81 MG EC TABLET PO SCH (08:59)
[2019-02-20] MEDS: PANTOPRAZOLE SODIUM 40 MG DR TABLET PO SCH (08:59)
[2019-02-20] MEDS: CARVEDILOL 3.125 MG TABLET PO SCH ×2 (08:59→21:32)
[2019-02-20] MEDS: AMIODARONE HCL 200 MG TABLET PO SCH (08:59)
[2019-02-20] MEDS: CLOPIDOGREL BISULFATE 75 MG TABLET PO SCH (08:59)
[2019-02-20] MEDS: FUROSEMIDE 20 MG/2 ML VIAL IVP SCH ×2 (09:00→21:31)
[2019-02-20] MEDS: ASCORBIC ACID 500 MG TABLET PO SCH (09:01)
[2019-02-20] MEDS: CETIRIZINE HCL 10 MG TABLET PO SCH (09:02)
[2019-02-20] MEDS: INSULIN LISPRO 100 UNITS/ML SQ PRN ×3 (12:17→21:33)
[2019-02-20 12:25] VITALS: BP 132/60
[2019-02-20] MEDS ORDERED: ALPRAZolam 0.25 MG TABLET PO PRN (12:30)
[2019-02-20 15:07] VITALS: BP 126/57
[2019-02-20 19:59] VITALS: BP 126/65
[2019-02-20] MEDS ORDERED: ATORVASTATIN CALCIUM 40 MG TABLET PO SCH (21:00)
[2019-02-20] MEDS ORDERED: INSULIN GLARGINE,HUM.REC.ANLOG 100 UNITS/ML SQ SCH (21:00)
[2019-02-20] MEDS: TERAZOSIN HCL 1 MG CAPSULE PO SCH (21:00)
[2019-02-20 22:05] LABS: GLUCOMETER DEV NAME(LOC) 5N.2; GLUCOSE,POINT OF CARE 163 MG/DL (70-110)
[2019-02-20 22:05] LABS: GLUCOMETER DEV NAME(LOC) 5N.2; GLUCOSE,POINT OF CARE 133 MG/DL (70-110)
[2019-02-20 22:05] LABS: GLUCOMETER DEV NAME(LOC) 5N.2; GLUCOSE,POINT OF CARE 108 MG/DL (70-110)
[2019-02-20 22:50] LABS: GLUCOMETER DEV NAME(LOC) 5N.1; GLUCOSE,POINT OF CARE 212 MG/DL (70-110)
[2019-02-20 23:30] VITALS: BP 115/52
[2019-02-21 03:26] VITALS: BP 121/55
[2019-02-21 06:13] LABS: BASOPHILS % (AUTO) 0.6 % (0.0-2.0); EOSINOPHILS % (AUTO) 1.2 % (1.0-6.0); HEMATOCRIT 28.4 % (36-46); HEMOGLOBIN 9.3 g/dL (12.0-16.0); LYMPHOCYTES # (AUTO) 1.5 K/uL (1.0-4.8); LYMPHOCYTES % (AUTO) 21.6 % (22.0-44.0); MEAN CORPUSCULAR HEMOGLOBIN 31.5 pg (26.0-34.0); MEAN CORPUSCULAR HGB CONC 32.8 G/dL (31.0-37.0); MEAN CORPUSCULAR VOLUME 96 fL (80-100); MONOCYTES # (AUTO) 0.8 K/uL (0.1-1.0); MONOCYTES % (AUTO) 11.2 % (2.0-9.0); NEUTROPHILS # (AUTO) 4.5 K/uL (1.8-7.7); NEUTROPHILS % (AUTO) 65.4 % (40.0-70.0); PLATELET COUNT (AUTO) 128 K/uL (150-450); RED BLOOD CELL COUNT(AUTO) 2.96 MIL/uL (4.00-5.20)
[2019-02-21 06:21] LABS: % IRON SATURATION 17.4 % (22-44)
[2019-02-21] MEDS: INSULIN LISPRO 100 UNITS/ML SQ PRN ×4 (06:40→20:24)
[2019-02-21 07:23] LABS: CALCIUM, TOTAL 8.8 mg/dL (8.8-10.5); CREATININE 1.81 mg/dL (0.60-1.30); POTASSIUM 3.9 mmol/L (3.5-5.1)
[2019-02-21 08:40] LABS: GLUCOMETER DEV NAME(LOC) 5N.2; GLUCOSE,POINT OF CARE 158 MG/DL (70-110)
[2019-02-21] MEDS ORDERED: EPOETIN ALFA 10,000 UNITS/ML VIAL SQ SCH (09:00)
[2019-02-21 10:05] VITALS: BP 116/60
[2019-02-21] MEDS: CARVEDILOL 3.125 MG TABLET PO SCH ×2 (11:03→20:22)
[2019-02-21] MEDS: FUROSEMIDE 20 MG/2 ML VIAL IVP SCH ×2 (11:03→20:22)
[2019-02-21] MEDS: ASCORBIC ACID 500 MG TABLET PO SCH (11:03)
[2019-02-21] MEDS: CETIRIZINE HCL 10 MG TABLET PO SCH (11:04)
[2019-02-21] MEDS: CHOLECALCIFEROL (VIT D3) 1,000 UNITS TABLET PO SCH (11:04)
[2019-02-21] MEDS: AMIODARONE HCL 200 MG TABLET PO SCH (11:05)
[2019-02-21] MEDS: CLOPIDOGREL BISULFATE 75 MG TABLET PO SCH (11:05)
[2019-02-21] MEDS: ASPIRIN 81 MG EC TABLET PO SCH (11:05)
[2019-02-21] MEDS: PANTOPRAZOLE SODIUM 40 MG DR TABLET PO SCH (11:05)
[2019-02-21] MEDS: CALCIUM CARBONATE 500 MG CHEWABLE TABLET CHEW PRN ×2 (12:25→18:14)
[2019-02-21 12:34] LABS: GLUCOMETER DEV NAME(LOC) 5N.2; GLUCOSE,POINT OF CARE 178 MG/DL (70-110)
[2019-02-21 16:09] VITALS: BP 124/71
[2019-02-21 20:38] VITALS: BP 127/62
[2019-02-21] MEDS: TERAZOSIN HCL 1 MG CAPSULE PO SCH (20:56)
[2019-02-21] MEDS ORDERED: INSULIN GLARGINE,HUM.REC.ANLOG 100 UNITS/ML SQ SCH (21:00)
[2019-02-21 21:54] LABS: GLUCOMETER DEV NAME(LOC) 5N.1; GLUCOSE,POINT OF CARE 191 MG/DL (70-110)
[2019-02-21 23:37] VITALS: BP 118/67
[2019-02-21 23:45] LABS: GLUCOMETER DEV NAME(LOC) 5N.2; GLUCOSE,POINT OF CARE 171 MG/DL (70-110)
[2019-02-22 00:27] LABS: CREATININE,URINE 38.5 mg/dL (30.0-125.0)
[2019-02-22 00:29] LABS: CREATININE,SERUM FOR CRCL 1.81 mg/dL (0.60-1.30)
[2019-02-22] MEDS: CALCIUM CARBONATE 500 MG CHEWABLE TABLET CHEW PRN (00:45)
[2019-02-22 04:57] VITALS: BP 121/56
[2019-02-22 06:17] LABS: BASOPHILS % (AUTO) 0.9 % (0.0-2.0); EOSINOPHILS % (AUTO) 1.6 % (1.0-6.0); HEMATOCRIT 28.2 % (36-46); HEMOGLOBIN 9.2 g/dL (12.0-16.0); LYMPHOCYTES # (AUTO) 1.5 K/uL (1.0-4.8); LYMPHOCYTES % (AUTO) 21.3 % (22.0-44.0); MEAN CORPUSCULAR HGB CONC 32.6 G/dL (31.0-37.0); MEAN CORPUSCULAR VOLUME 95 fL (80-100); MONOCYTES # (AUTO) 0.8 K/uL (0.1-1.0); MONOCYTES % (AUTO) 11.7 % (2.0-9.0); NEUTROPHILS # (AUTO) 4.4 K/uL (1.8-7.7); NEUTROPHILS % (AUTO) 64.5 % (40.0-70.0); PLATELET COUNT (AUTO) 131 K/uL (150-450); RED BLOOD CELL COUNT(AUTO) 2.97 MIL/uL (4.00-5.20); RED CELL DISTRIBUTION WIDTH 16.5 % (11.5-14.5)
[2019-02-22 06:38] LABS: ALBUMIN 2.1 g/dL (3.4-5.0); BILIRUBIN,TOTAL 1.4 mg/dL (0.1-1.0); CALCIUM, TOTAL 8.5 mg/dL (8.8-10.5); CREATININE 1.79 mg/dL (0.60-1.30); MAGNESIUM 1.9 mg/dL (1.80-2.40); PHOSPHORUS 3.8 mg/dL (2.5-4.9); POTASSIUM 4.1 mmol/L (3.5-5.1); TOTAL PROTEIN, SERUM 6.8 g/dL (6.4-8.2)
[2019-02-22 06:58] VITALS: BP 112/47
[2019-02-22] MEDS: PANTOPRAZOLE SODIUM 40 MG DR TABLET PO SCH (08:42)
[2019-02-22] MEDS: CHOLECALCIFEROL (VIT D3) 1,000 UNITS TABLET PO SCH (08:42)
[2019-02-22] MEDS: CETIRIZINE HCL 10 MG TABLET PO SCH (08:42)
[2019-02-22] MEDS: CARVEDILOL 3.125 MG TABLET PO SCH (08:42)
[2019-02-22] MEDS: CLOPIDOGREL BISULFATE 75 MG TABLET PO SCH (08:42)
[2019-02-22] MEDS: ASPIRIN 81 MG EC TABLET PO SCH (08:42)
[2019-02-22] MEDS: AMIODARONE HCL 200 MG TABLET PO SCH (08:42)
[2019-02-22] MEDS: FUROSEMIDE 20 MG/2 ML VIAL IVP SCH (08:43)
[2019-02-22] MEDS: ASCORBIC ACID 500 MG TABLET PO SCH (08:43)
[2019-02-22 11:32] VITALS: BP 153/68
[2019-02-22 13:25] LABS: GLUCOMETER DEV NAME(LOC) 5N.1; GLUCOSE,POINT OF CARE 221 MG/DL (70-110)
[2019-02-22 13:25] LABS: GLUCOMETER DEV NAME(LOC) 5N.1; GLUCOSE,POINT OF CARE 128 MG/DL (70-110)
[2019-02-23] MEDS ORDERED: FUROSEMIDE 40 MG TABLET PO SCH (09:00)
== END 2019-02-22 14:50 | disposition home health service (06) | DRG 291 ==
LOC: EMS 13:55 → 5S 18:56
PROVIDERS: ADMIT Internal Medicine Geriatric Medicine; ATTEND Internal Medicine Geriatric Medicine
DX: I13.0 Hypertensive heart and chronic kidney disease with heart failure and stage 1 through stage 4 chronic kidney disease, or unspecified chronic kidney disease (principal); I50.43 Acute on chronic combined systolic (congestive) and diastolic (congestive) heart failure; J45.901 Unspecified asthma with (acute) exacerbation; I25.10 Atherosclerotic heart disease of native coronary artery without angina pectoris; I48.91 Unspecified atrial fibrillation; E78.00 Pure hypercholesterolemia, unspecified; F43.23 Adjustment disorder with mixed anxiety and depressed mood; K21.9 Gastro-esophageal reflux disease without esophagitis; M10.9 Gout, unspecified; E11.22 Type 2 diabetes mellitus with diabetic chronic kidney disease; E78.5 Hyperlipidemia, unspecified; N18.9 Chronic kidney disease, unspecified; D64.9 Anemia, unspecified; D69.6 Thrombocytopenia, unspecified; Z95.810 Presence of automatic (implantable) cardiac defibrillator; J45.909 Unspecified asthma, uncomplicated; I25.5 Ischemic cardiomyopathy; Z95.1 Presence of aortocoronary bypass graft; I25.2 Old myocardial infarction; Z95.5 Presence of coronary angioplasty implant and graft; Z89.412 Acquired absence of left great toe; Z79.4 Long term (current) use of insulin; Z79.82 Long term (current) use of aspirin; Z79.899 Other long term (current) drug therapy
CPT/HCPCS: 71250; 81050; 82575; 83036; 83540; 83550; 83735; 84100; 84156; 84166; 84300; 84439; 84443; 84540; 84550; 87081; 93005; 93306; 96374; 97162; G0378; J0885; J1815; J1940

== ENCOUNTER 2019-03-01 11:46 | Inpatient (IN) | payer MEDICARE, OTHER ==
[~2019-03-01] VITALS: Ht 160 cm; Wt 84.6 kg
[~2019-03-01 11:46] MED LIST changes: -ACET-2902 PO; -ALBU2.5V2 NEB; -ALPR0.5T8 PO; +ASCO500 PO; -ATOR40TA28 PO; -BISA10SU11 PR; -BUDE0.5A3 NEB; -EZET10 PO; -GUAIF600 PO; +HYDR-3110 PO; +INSNOV SQ; -INSU100V SQ; -IPRNEB IH; +LEVO5TAB29 PO; -LOSA25TA41 PO; -ONDA4 PO; -PHEN-922 PO; -SULF1TAB41 PO; +TERA1CAP7 PO; +VITAD1000 PO
[2019-03-01 12:20] LABS: GLUCOSE,POINT OF CARE 193 MG/DL (70-110)
[2019-03-01 13:38] LABS: BASOPHILS % (AUTO) 0.7 % (0.0-2.0); EOSINOPHILS % (AUTO) 0.5 % (1.0-6.0); HEMATOCRIT 30.6 % (36-46); HEMOGLOBIN 9.8 g/dL (12.0-16.0); LYMPHOCYTES # (AUTO) 1.3 K/uL (1.0-4.8); LYMPHOCYTES % (AUTO) 20.1 % (22.0-44.0); MEAN CORPUSCULAR HEMOGLOBIN 30.8 pg (26.0-34.0); MEAN CORPUSCULAR HGB CONC 31.9 G/dL (31.0-37.0); MEAN CORPUSCULAR VOLUME 96 fL (80-100); MONOCYTES # (AUTO) 0.7 K/uL (0.1-1.0); MONOCYTES % (AUTO) 10.8 % (2.0-9.0); NEUTROPHILS # (AUTO) 4.4 K/uL (1.8-7.7); NEUTROPHILS % (AUTO) 67.9 % (40.0-70.0); PLATELET COUNT (AUTO) 147 K/uL (150-450); RED BLOOD CELL COUNT(AUTO) 3.17 MIL/uL (4.00-5.20); RED CELL DISTRIBUTION WIDTH 16.7 % (11.5-14.5)
[2019-03-01 13:49] LABS: CREATININE 2.31 mg/dL (0.60-1.30); POTASSIUM 5.5 mmol/L (3.5-5.1)
[2019-03-01 13:54] LABS: ALBUMIN 2.4 g/dL (3.4-5.0); PROTHROMBIN TIME 10.6 SEC (9.4-11.6); TOTAL PROTEIN, SERUM 7.6 g/dL (6.4-8.2)
[2019-03-01] MEDS ORDERED: PB/HYOSCY/ATR/SCOP/LIDO/MAALOX 55 ML BOTTLE PO ONE (15:00)
[2019-03-01] MEDS ORDERED: ONDANSETRON HCL 4 MG/2 ML VIAL IVP PRN (16:45)
[2019-03-01] MEDS ORDERED: FUROSEMIDE 20 MG/2 ML VIAL IVP ONE (16:45)
[2019-03-01] MEDS ORDERED: ACETAMINOPHEN 325 MG TABLET PO PRN (16:45)
[2019-03-01] MEDS ORDERED: DEXTROSE 50%-WATER 25 GM/50 ML SYRINGE IVP PRN (18:45)
[2019-03-01] MEDS ORDERED: SODIUM POLYSTYRENE SULFONATE 15 GM/60 ML SUSPENSION BOTTLE PO ONE (19:00)
[2019-03-01 19:20] VITALS: BP 132/74
[2019-03-01 19:42] VITALS: BP 112/64
[2019-03-01 23:23] VITALS: BP 123/58
[2019-03-02] MEDS ORDERED: INSULIN LISPRO 100 UNITS/ML SQ PRN (00:15)
[2019-03-02] MEDS ORDERED: NITROGLYCERIN 0.4 MG SUBLINGUAL TABLET #25 SL PRN (00:15)
[2019-03-02] MEDS ORDERED: GLUCAGON,HUMAN RECOMBINANT 1 MG VIAL IM PRN (00:15)
[2019-03-02] MEDS ORDERED: 0.9% SODIUM CHLORIDE 10 ML SYRINGE IVP PRN (00:15)
[2019-03-02] MEDS ORDERED: ALBUMIN HUMAN 25%-25GM/100ML 100 ML IV ONE (00:15)
[2019-03-02] MEDS ORDERED: MAGNESIUM HYDROXIDE SUSPENSION 30 ML UDCUP PO PRN (00:15)
[2019-03-02] MEDS: DOCUSATE SODIUM 100 MG CAPSULE PO SCH ×3 (00:15→20:42)
[2019-03-02] MEDS ORDERED: OxyCODONE HCL/ACETAMINOPHEN 5-325 MG TABLET PO PRN ×2 (00:15)
[2019-03-02] MEDS: CARVEDILOL 3.125 MG TABLET PO SCH ×3 (00:46→20:43)
[2019-03-02] MEDS: HEPARIN SODIUM,PORCINE 5,000 UNITS/ML VIAL SQ SCH ×3 (00:47→20:43)
[2019-03-02] MEDS: ALBUMIN HUMAN 25%-12.5GM/50ML 50 ML IV SCH ×2 (00:47→01:04)
[2019-03-02] MEDS: ACETAMINOPHEN 325 MG TABLET PO PRN ×2 (01:04→23:24)
[2019-03-02 04:29] VITALS: BP 106/52
[2019-03-02 06:05] LABS: GLUCOMETER DEV NAME(LOC) 5N.2; GLUCOSE,POINT OF CARE 174 MG/DL (70-110)
[2019-03-02] MEDS: INSULIN LISPRO 100 UNITS/ML SQ PRN ×4 (06:35→21:29)
[2019-03-02 08:13] VITALS: BP 118/58
[2019-03-02] MEDS: FUROSEMIDE 40 MG/4 ML VIAL IVP SCH (08:34)
[2019-03-02] MEDS: FAMOTIDINE 10 MG/ML 2 ML VIAL IVP SCH (08:34)
[2019-03-02] MEDS: CLOPIDOGREL BISULFATE 75 MG TABLET PO SCH (08:35)
[2019-03-02] MEDS: ASPIRIN 81 MG EC TABLET PO SCH (08:35)
[2019-03-02] MEDS: AMIODARONE HCL 200 MG TABLET PO SCH (08:35)
[2019-03-02 11:19] VITALS: BP 122/61
[2019-03-02 15:30] LABS: GLUCOMETER DEV NAME(LOC) 5S.1; GLUCOSE,POINT OF CARE 152 MG/DL (70-110)
[2019-03-02 16:06] VITALS: BP 125/67
[2019-03-02 17:15] LABS: GLUCOMETER DEV NAME(LOC) 5N.1; GLUCOSE,POINT OF CARE 160 MG/DL (70-110)
[2019-03-02 19:49] LABS: GLUCOMETER DEV NAME(LOC) 5N.2; GLUCOSE,POINT OF CARE 246 MG/DL (70-110)
[2019-03-02 20:08] VITALS: BP 127/61
[2019-03-02] MEDS: INSULIN GLARGINE,HUM.REC.ANLOG 100 UNITS/ML SQ SCH (21:00)
[2019-03-02 23:14] LABS: GLUCOMETER DEV NAME(LOC) 5S.1; GLUCOSE,POINT OF CARE 158 MG/DL (70-110)
[2019-03-02 23:51] VITALS: BP 132/72
[2019-03-03 02:31] LABS: APPEARANCE,URINE CLOUDY (CLEAR); BILIRUBIN,URINE NEGATIVE (NEGATIVE); GLUCOSE, URINE (UA) NEGATIVE (NEGATIVE); KETONES,URINE NEGATIVE (NEGATIVE); LEUKOCYTE ESTERASE ,URINE MODERATE (NEGATIVE); NITRATE,URINE NEGATIVE (NEGATIVE); OCCULT BLOOD,URINE SMALL (NEGATIVE); PROTEIN,URINE POS 1+ (NEGATIVE)
[2019-03-03 02:39] LABS: RBC,URINE 0-2 /HPF (0-2); WBC,URINE 51-100 /HPF (0-5)
[2019-03-03 02:40] LABS: BACTERIA,URINE Few /HPF (None Seen); SQUAMOUS EPITHELIAL CELL,UR Few /LPF (None Seen); YEAST,URINE Few /HPF (None Seen)
[2019-03-03 04:26] VITALS: BP 120/55
[2019-03-03] MEDS: INSULIN LISPRO 100 UNITS/ML SQ PRN ×4 (06:28→21:06)
[2019-03-03 07:10] LABS: EOSINOPHILS % (AUTO) 0.8 % (1.0-6.0); HEMATOCRIT 29.8 % (36-46); HEMOGLOBIN 9.7 g/dL (12.0-16.0); LYMPHOCYTES # (AUTO) 1.3 K/uL (1.0-4.8); LYMPHOCYTES % (AUTO) 21.5 % (22.0-44.0); MEAN CORPUSCULAR HEMOGLOBIN 31.1 pg (26.0-34.0); MEAN CORPUSCULAR HGB CONC 32.4 G/dL (31.0-37.0); MEAN CORPUSCULAR VOLUME 96 fL (80-100); MONOCYTES # (AUTO) 0.6 K/uL (0.1-1.0); NEUTROPHILS % (AUTO) 66.7 % (40.0-70.0); PLATELET COUNT (AUTO) 137 K/uL (150-450); RED CELL DISTRIBUTION WIDTH 16.8 % (11.5-14.5)
[2019-03-03 07:22] LABS: CALCIUM, TOTAL 8.9 mg/dL (8.8-10.5); CREATININE 2.11 mg/dL (0.60-1.30); POTASSIUM 3.9 mmol/L (3.5-5.1)
[2019-03-03 07:55] VITALS: BP 131/54
[2019-03-03] MEDS: FUROSEMIDE 40 MG/4 ML VIAL IVP SCH ×3 (08:04→21:04)
[2019-03-03] MEDS: DOCUSATE SODIUM 100 MG CAPSULE PO SCH ×2 (08:04→21:04)
[2019-03-03] MEDS: FAMOTIDINE 10 MG/ML 2 ML VIAL IVP SCH (08:04)
[2019-03-03] MEDS: HEPARIN SODIUM,PORCINE 5,000 UNITS/ML VIAL SQ SCH ×2 (08:05→21:05)
[2019-03-03] MEDS: AMIODARONE HCL 200 MG TABLET PO SCH (08:05)
[2019-03-03] MEDS: CLOPIDOGREL BISULFATE 75 MG TABLET PO SCH (08:05)
[2019-03-03] MEDS: ASPIRIN 81 MG EC TABLET PO SCH (08:05)
[2019-03-03] MEDS: CARVEDILOL 3.125 MG TABLET PO SCH ×2 (08:05→21:03)
[2019-03-03] MEDS: ACETAMINOPHEN 325 MG TABLET PO PRN (09:11)
[2019-03-03] MEDS: ONDANSETRON HCL 4 MG/2 ML VIAL IVP PRN ×2 (09:15→21:05)
[2019-03-03 14:19] LABS: GLUCOMETER DEV NAME(LOC) 5N.1; GLUCOSE,POINT OF CARE 170 MG/DL (70-110)
[2019-03-03 16:16] VITALS: BP 123/63
[2019-03-03 20:05] LABS: GLUCOMETER DEV NAME(LOC) 5S.1; GLUCOSE,POINT OF CARE 125 MG/DL (70-110)
[2019-03-03 20:22] VITALS: BP 118/55
[2019-03-03] MEDS: INSULIN GLARGINE,HUM.REC.ANLOG 100 UNITS/ML SQ SCH (21:00)
[2019-03-04] VITALS (7 sets, daily range): BP systolic 116–152; BP diastolic 52–80
[2019-03-04 00:45] LABS: GLUCOMETER DEV NAME(LOC) 5S.1; GLUCOSE,POINT OF CARE 170 MG/DL (70-110)
[2019-03-04] MEDS: ACETAMINOPHEN 325 MG TABLET PO PRN (00:54)
[2019-03-04] MEDS: LORazepam 1 MG TABLET PO PRN ×2 (00:54→12:43)
[2019-03-04 01:50] LABS: GLUCOMETER DEV NAME(LOC) 5N.2; GLUCOSE,POINT OF CARE 168 MG/DL (70-110)
[2019-03-04 06:19] LABS: CALCIUM, TOTAL 8.8 mg/dL (8.8-10.5); CREATININE 2.02 mg/dL (0.60-1.30)
[2019-03-04 06:55] LABS: GLUCOMETER DEV NAME(LOC) 5S.1; GLUCOSE,POINT OF CARE 140 MG/DL (70-110)
[2019-03-04] MEDS: FUROSEMIDE 40 MG/4 ML VIAL IVP SCH (09:57)
[2019-03-04] MEDS: AMIODARONE HCL 200 MG TABLET PO SCH (09:58)
[2019-03-04] MEDS: ASPIRIN 81 MG EC TABLET PO SCH (09:58)
[2019-03-04] MEDS: HEPARIN SODIUM,PORCINE 5,000 UNITS/ML VIAL SQ SCH ×2 (09:58→20:54)
[2019-03-04] MEDS: DOCUSATE SODIUM 100 MG CAPSULE PO SCH ×2 (09:58→21:00)
[2019-03-04] MEDS: CARVEDILOL 3.125 MG TABLET PO SCH ×2 (09:58→21:01)
[2019-03-04] MEDS: CLOPIDOGREL BISULFATE 75 MG TABLET PO SCH (10:00)
[2019-03-04] MEDS: FAMOTIDINE 10 MG/ML 2 ML VIAL IVP SCH (10:02)
[2019-03-04] MEDS: EPOETIN ALFA 10,000 UNITS/ML VIAL SQ SCH (10:28)
[2019-03-04] MEDS: INSULIN LISPRO 100 UNITS/ML SQ PRN (12:08)
[2019-03-04] MEDS ORDERED: MEBROFENIN TC99M/MCL ISOTOPE 1 EA INJ INJ ONE (18:50)
[2019-03-04 19:40] LABS: GLUCOMETER DEV NAME(LOC) 5S.1; GLUCOSE,POINT OF CARE 209 MG/DL (70-110)
[2019-03-04 19:40] LABS: GLUCOMETER DEV NAME(LOC) 5S.1; GLUCOSE,POINT OF CARE 147 MG/DL (70-110)
[2019-03-04] MEDS: ONDANSETRON HCL 4 MG/2 ML VIAL IVP PRN (20:53)
[2019-03-04] MEDS: FUROSEMIDE 20 MG/2 ML VIAL IVP SCH (20:54)
[2019-03-04] MEDS: INSULIN GLARGINE,HUM.REC.ANLOG 100 UNITS/ML SQ SCH (20:57)
[2019-03-04] MEDS: PANTOPRAZOLE SODIUM 40 MG DR TABLET PO SCH (21:01)
[2019-03-04 21:49] LABS: GLUCOMETER DEV NAME(LOC) 5S.1; GLUCOSE,POINT OF CARE 195 MG/DL (70-110)
[2019-03-04] MEDS: MECLIZINE HCL 25 MG TABLET PO PRN (23:10)
[2019-03-05] MEDS: LORazepam 1 MG TABLET PO PRN (00:48)
[2019-03-05 05:43] LABS: BASOPHILS % (AUTO) 0.8 % (0.0-2.0); EOSINOPHILS % (AUTO) 0.8 % (1.0-6.0); HEMATOCRIT 29.9 % (36-46); HEMOGLOBIN 9.8 g/dL (12.0-16.0); LYMPHOCYTES # (AUTO) 1.4 K/uL (1.0-4.8); LYMPHOCYTES % (AUTO) 24.5 % (22.0-44.0); MEAN CORPUSCULAR HEMOGLOBIN 31.6 pg (26.0-34.0); MEAN CORPUSCULAR HGB CONC 32.9 G/dL (31.0-37.0); MEAN CORPUSCULAR VOLUME 96 fL (80-100); MONOCYTES # (AUTO) 0.6 K/uL (0.1-1.0); MONOCYTES % (AUTO) 9.9 % (2.0-9.0); NEUTROPHILS # (AUTO) 3.6 K/uL (1.8-7.7); PLATELET COUNT (AUTO) 155 K/uL (150-450); RED BLOOD CELL COUNT(AUTO) 3.12 MIL/uL (4.00-5.20); RED CELL DISTRIBUTION WIDTH 16.3 % (11.5-14.5)
[2019-03-05 05:57] VITALS: BP 139/63
[2019-03-05 06:18] LABS: ALBUMIN 2.3 g/dL (3.4-5.0); BILIRUBIN,TOTAL 2.6 mg/dL (0.1-1.0); CALCIUM, TOTAL 8.9 mg/dL (8.8-10.5); CREATININE 1.87 mg/dL (0.60-1.30); MAGNESIUM 1.9 mg/dL (1.80-2.40); PHOSPHORUS 3.9 mg/dL (2.5-4.9); POTASSIUM 3.8 mmol/L (3.5-5.1); TOTAL PROTEIN, SERUM 7.1 g/dL (6.4-8.2)
[2019-03-05 07:48] VITALS: BP 121/58
[2019-03-05] MEDS: FAMOTIDINE 10 MG/ML 2 ML VIAL IVP SCH (08:24)
[2019-03-05] MEDS: HEPARIN SODIUM,PORCINE 5,000 UNITS/ML VIAL SQ SCH ×2 (08:24→20:32)
[2019-03-05] MEDS: FUROSEMIDE 40 MG/4 ML VIAL IVP SCH (08:28)
[2019-03-05] MEDS: DOCUSATE SODIUM 100 MG CAPSULE PO SCH ×2 (08:28→20:32)
[2019-03-05] MEDS: CARVEDILOL 3.125 MG TABLET PO SCH ×2 (08:28→20:32)
[2019-03-05] MEDS: AMIODARONE HCL 200 MG TABLET PO SCH (08:29)
[2019-03-05] MEDS: PANTOPRAZOLE SODIUM 40 MG DR TABLET PO SCH ×2 (08:29→20:32)
[2019-03-05] MEDS: ASPIRIN 81 MG EC TABLET PO SCH (08:29)
[2019-03-05] MEDS: CLOPIDOGREL BISULFATE 75 MG TABLET PO SCH (08:29)
[2019-03-05 11:47] VITALS: BP 118/66
[2019-03-05 13:00] LABS: GLUCOMETER DEV NAME(LOC) 5N.1; GLUCOSE,POINT OF CARE 102 MG/DL (70-110)
[2019-03-05] MEDS: MECLIZINE HCL 25 MG TABLET PO PRN (17:42)
[2019-03-05] MEDS: INSULIN LISPRO 100 UNITS/ML SQ PRN (17:44)
[2019-03-05 20:26] VITALS: BP 129/69
[2019-03-05] MEDS: FUROSEMIDE 20 MG/2 ML VIAL IVP SCH (20:32)
[2019-03-05] MEDS: INSULIN GLARGINE,HUM.REC.ANLOG 100 UNITS/ML SQ SCH (20:37)
[2019-03-05 23:39] VITALS: BP 124/52
[2019-03-05 23:50] LABS: GLUCOMETER DEV NAME(LOC) 5S.1; GLUCOSE,POINT OF CARE 114 MG/DL (70-110)
[2019-03-05 23:50] LABS: GLUCOMETER DEV NAME(LOC) 5S.1; GLUCOSE,POINT OF CARE 168 MG/DL (70-110)
[2019-03-06 04:19] VITALS: BP 119/61
[2019-03-06 06:26] LABS: GLUCOMETER DEV NAME(LOC) 5S.1; GLUCOSE,POINT OF CARE 83 MG/DL (70-110)
[2019-03-06 06:27] LABS: BASOPHILS % (AUTO) 0.8 % (0.0-2.0); EOSINOPHILS % (AUTO) 1.1 % (1.0-6.0); HEMATOCRIT 31.1 % (36-46); HEMOGLOBIN 10.1 g/dL (12.0-16.0); LYMPHOCYTES # (AUTO) 1.3 K/uL (1.0-4.8); LYMPHOCYTES % (AUTO) 21.1 % (22.0-44.0); MEAN CORPUSCULAR HEMOGLOBIN 30.9 pg (26.0-34.0); MEAN CORPUSCULAR HGB CONC 32.5 G/dL (31.0-37.0); MEAN CORPUSCULAR VOLUME 95 fL (80-100); MONOCYTES # (AUTO) 0.7 K/uL (0.1-1.0); MONOCYTES % (AUTO) 10.6 % (2.0-9.0); NEUTROPHILS # (AUTO) 4.1 K/uL (1.8-7.7); NEUTROPHILS % (AUTO) 66.4 % (40.0-70.0); PLATELET COUNT (AUTO) 156 K/uL (150-450); RED BLOOD CELL COUNT(AUTO) 3.28 MIL/uL (4.00-5.20); RED CELL DISTRIBUTION WIDTH 16.8 % (11.5-14.5)
[2019-03-06 06:36] LABS: PROTHROMBIN TIME 10.6 SEC (9.4-11.6)
[2019-03-06 06:47] LABS: ALBUMIN 2.4 g/dL (3.4-5.0); BILIRUBIN,TOTAL 2.9 mg/dL (0.1-1.0); CALCIUM, TOTAL 8.9 mg/dL (8.8-10.5); CREATININE 1.94 mg/dL (0.60-1.30); MAGNESIUM 1.7 mg/dL (1.80-2.40); PHOSPHORUS 3.5 mg/dL (2.5-4.9); POTASSIUM 4.5 mmol/L (3.5-5.1); TOTAL PROTEIN, SERUM 7.4 g/dL (6.4-8.2)
[2019-03-06 07:54] VITALS: BP 129/51
[2019-03-06] MEDS: HEPARIN SODIUM,PORCINE 5,000 UNITS/ML VIAL SQ SCH (09:00)
[2019-03-06] MEDS: FAMOTIDINE 10 MG/ML 2 ML VIAL IVP SCH (09:17)
[2019-03-06] MEDS: FUROSEMIDE 40 MG/4 ML VIAL IVP SCH (09:25)
[2019-03-06] MEDS: DOCUSATE SODIUM 100 MG CAPSULE PO SCH (09:32)
[2019-03-06] MEDS: ASPIRIN 81 MG EC TABLET PO SCH (09:33)
[2019-03-06] MEDS: CARVEDILOL 3.125 MG TABLET PO SCH (09:33)
[2019-03-06] MEDS: CLOPIDOGREL BISULFATE 75 MG TABLET PO SCH (09:35)
[2019-03-06] MEDS: PANTOPRAZOLE SODIUM 40 MG DR TABLET PO SCH (09:35)
[2019-03-06] MEDS: AMIODARONE HCL 200 MG TABLET PO SCH (09:36)
[2019-03-06 09:50] LABS: GLUCOMETER DEV NAME(LOC) 5N.1; GLUCOSE,POINT OF CARE 138 MG/DL (70-110)
[2019-03-06] MEDS: EPOETIN ALFA 10,000 UNITS/ML VIAL SQ SCH (10:56)
== END 2019-03-06 11:20 | disposition home or self-care (01) | DRG 682 ==
LOC: EMS 11:48 → 5S 17:08
PROVIDERS: ADMIT Internal Medicine; ATTEND Internal Medicine Geriatric Medicine
DX: N17.9 Acute kidney failure, unspecified (principal); I50.43 Acute on chronic combined systolic (congestive) and diastolic (congestive) heart failure; E43 Unspecified severe protein-calorie malnutrition; I13.0 Hypertensive heart and chronic kidney disease with heart failure and stage 1 through stage 4 chronic kidney disease, or unspecified chronic kidney disease; E87.1 Hypo-osmolality and hyponatremia; K80.21 Calculus of gallbladder without cholecystitis with obstruction; N18.4 Chronic kidney disease, stage 4 (severe); K21.9 Gastro-esophageal reflux disease without esophagitis; E87.5 Hyperkalemia; D64.9 Anemia, unspecified; E78.5 Hyperlipidemia, unspecified; I25.10 Atherosclerotic heart disease of native coronary artery without angina pectoris; E11.8 Type 2 diabetes mellitus with unspecified complications; J45.909 Unspecified asthma, uncomplicated; M10.9 Gout, unspecified; I25.5 Ischemic cardiomyopathy; I48.91 Unspecified atrial fibrillation; F41.0 Panic disorder [episodic paroxysmal anxiety]; E11.22 Type 2 diabetes mellitus with diabetic chronic kidney disease; E11.51 Type 2 diabetes mellitus with diabetic peripheral angiopathy without gangrene; E11.69 Type 2 diabetes mellitus with other specified complication; E78.00 Pure hypercholesterolemia, unspecified; Z87.891 Personal history of nicotine dependence; Z91.19 Patient's noncompliance with other medical treatment and regimen; Z95.1 Presence of aortocoronary bypass graft; Z95.5 Presence of coronary angioplasty implant and graft; Z95.810 Presence of automatic (implantable) cardiac defibrillator; Z68.33 Body mass index [BMI] 33.0-33.9, adult
CPT/HCPCS: 74176; 76700; 78226; 82105; 82728; 83516; 83735; 84100; 86706; 86707; 86803; 87081; 87086; 87340; 87350; 93005; 96365; 96375; A9537; G0378; J0885; J1644; J1815; J1940; J2405; J3490; P9046; P9047

== ENCOUNTER 2019-03-11 04:22 | Inpatient (IN) | payer MEDICARE, OTHER ==
[~2019-03-11] VITALS: Ht 160 cm; Wt 92.1 kg
[2019-03-11 04:40] LABS: GLUCOSE,POINT OF CARE 216 MG/DL (70-110)
[2019-03-11 05:05] LABS: HEMATOCRIT 29.8 % (36-46); HEMOGLOBIN 9.8 g/dL (12.0-16.0); MEAN CORPUSCULAR HGB CONC 32.8 G/dL (31.0-37.0); MEAN CORPUSCULAR VOLUME 95 fL (80-100); PLATELET COUNT (AUTO) 148 K/uL (150-450); RED BLOOD CELL COUNT(AUTO) 3.15 MIL/uL (4.00-5.20); RED CELL DISTRIBUTION WIDTH 16.4 % (11.5-14.5)
[2019-03-11 05:14] LABS: CALCIUM, TOTAL 9.2 mg/dL (8.8-10.5); CREATININE 2.63 mg/dL (0.60-1.30); POTASSIUM 4.8 mmol/L (3.5-5.1)
[2019-03-11 05:17] LABS: INR 1.1 (0.9-1.1); PROTHROMBIN TIME 11.2 SEC (9.4-11.6)
[2019-03-11 05:20] LABS: ALBUMIN 2.5 g/dL (3.4-5.0); BILIRUBIN,TOTAL 7.9 mg/dL (0.1-1.0); TOTAL PROTEIN, SERUM 7.1 g/dL (6.4-8.2)
[2019-03-11 05:25] LABS: BAND NEUTROPHILS % (MANUAL) 2 % (0-5); BASOPHILS % (MANUAL) 1 % (0-2); EOSINOPHILS % (MANUAL) 1 % (1-6); LYMPHOCYTES % (MANUAL) 14 % (22-44); MONOCYTES % (MANUAL) 7 % (2-9); SEGMENTED NEUTROPHILS % 75 % (40-70)
[2019-03-11 05:54] LABS: APPEARANCE,URINE CLOUDY (CLEAR); GLUCOSE, URINE (UA) NEGATIVE (NEGATIVE); KETONES,URINE NEGATIVE (NEGATIVE); LEUKOCYTE ESTERASE ,URINE MODERATE (NEGATIVE); NITRATE,URINE NEGATIVE (NEGATIVE); OCCULT BLOOD,URINE SMALL (NEGATIVE); PROTEIN,URINE SEE CONFIRM (NEGATIVE)
[2019-03-11 06:02] LABS: BILIRUBIN,URINE PRELIM. POSITIVE (NEGATIVE)
[2019-03-11 06:04] LABS: BACTERIA,URINE Few /HPF (None Seen); HYALINE CASTS, URINE 0-2 /LPF (None Seen); SQUAMOUS EPITHELIAL CELL,UR Moderate /LPF (None Seen); WBC,URINE 51-100 /HPF (0-5); YEAST,URINE Rare /HPF (None Seen)
[2019-03-11 06:05] LABS: SULFOSALICYLIC ACID,URINE 1+ (Negative)
[2019-03-11] MEDS ORDERED: LEVOFLOXACIN 750 MG/D5% WATER 150 ML IV ONE (06:30)
[2019-03-11] MEDS ORDERED: FUROSEMIDE 40 MG/4 ML VIAL IVP ONE (06:30)
[2019-03-11] MEDS ORDERED: 0.9% SODIUM CHLORIDE 10 ML SYRINGE IVP PRN (07:00)
[2019-03-11] MEDS ORDERED: ACETAMINOPHEN 325 MG TABLET PO PRN (07:00)
[2019-03-11] MEDS ORDERED: DEXTROSE 50%-WATER 25 GM/50 ML SYRINGE IVP PRN (08:15)
[2019-03-11 08:30] VITALS: BP 134/64
[2019-03-11] MEDS: DOCUSATE SODIUM 100 MG CAPSULE PO SCH ×2 (09:00→20:49)
[2019-03-11] MEDS: FAMOTIDINE 20 MG TABLET PO SCH (09:06)
[2019-03-11] MEDS: HEPARIN SODIUM,PORCINE 5,000 UNITS/ML VIAL SQ SCH ×2 (09:07→20:49)
[2019-03-11] MEDS: ASPIRIN 81 MG CHEWABLE TABLET PO SCH (10:08)
[2019-03-11] MEDS: CLOPIDOGREL BISULFATE 75 MG TABLET PO SCH (10:08)
[2019-03-11] MEDS ORDERED: SODIUM CHLORIDE 0.9% 250 ML IV ONE ×2 (11:14→11:26)
[2019-03-11] MEDS: CefTRIAXone 1 GM/DEXTROSE 50 ML IV SCH (11:26)
[2019-03-11] MEDS: INSULIN LISPRO 100 UNITS/ML SQ PRN ×3 (12:07→21:31)
[2019-03-11 12:18] VITALS: BP 125/59
[2019-03-11] MEDS ORDERED: AMIODARONE HCL 200 MG TABLET PO ONE (12:30)
[2019-03-11 15:55] VITALS: BP 120/58
[2019-03-11 16:52] LABS: GLUCOMETER DEV NAME(LOC) 5S.1; GLUCOSE,POINT OF CARE 165 MG/DL (70-110)
[2019-03-11 18:45] LABS: GLUCOMETER DEV NAME(LOC) 5S.1; GLUCOSE,POINT OF CARE 165 MG/DL (70-110)
[2019-03-11 19:16] VITALS: BP 116/54
[2019-03-11] MEDS: FUROSEMIDE 20 MG/2 ML VIAL IVP SCH (20:49)
[2019-03-11] MEDS: CARVEDILOL 3.125 MG TABLET PO SCH (20:49)
[2019-03-11] MEDS: ATORVASTATIN CALCIUM 20 MG TABLET PO SCH (21:00)
[2019-03-11] MEDS: INSULIN GLARGINE,HUM.REC.ANLOG 100 UNITS/ML SQ SCH (21:28)
[2019-03-11 23:38] VITALS: BP 116/48
[2019-03-11 23:45] LABS: GLUCOMETER DEV NAME(LOC) 5N.2; GLUCOSE,POINT OF CARE 146 MG/DL (70-110)
[2019-03-12 04:37] VITALS: BP 101/57
[2019-03-12 06:23] LABS: CALCIUM, TOTAL 9.1 mg/dL (8.8-10.5); CREATININE 2.51 mg/dL (0.60-1.30); MAGNESIUM 2.1 mg/dL (1.80-2.40); PHOSPHORUS 3.8 mg/dL (2.5-4.9); POTASSIUM 4.6 mmol/L (3.5-5.1)
[2019-03-12 06:46] LABS: % IRON SATURATION 16.9 % (22-44)
[2019-03-12 07:06] LABS: GLUCOMETER DEV NAME(LOC) 5N.1; GLUCOSE,POINT OF CARE 133 MG/DL (70-110)
[2019-03-12 07:57] VITALS: BP 131/54
[2019-03-12] MEDS: DOCUSATE SODIUM 100 MG CAPSULE PO SCH ×2 (09:00→20:31)
[2019-03-12] MEDS: CLOPIDOGREL BISULFATE 75 MG TABLET PO SCH (09:32)
[2019-03-12] MEDS: CARVEDILOL 3.125 MG TABLET PO SCH ×2 (09:32→21:00)
[2019-03-12] MEDS: AMIODARONE HCL 200 MG TABLET PO SCH (09:32)
[2019-03-12] MEDS: FUROSEMIDE 20 MG/2 ML VIAL IVP SCH ×2 (09:33→20:31)
[2019-03-12] MEDS: ASPIRIN 81 MG CHEWABLE TABLET PO SCH (09:33)
[2019-03-12] MEDS: HEPARIN SODIUM,PORCINE 5,000 UNITS/ML VIAL SQ SCH ×2 (09:33→20:31)
[2019-03-12] MEDS: FAMOTIDINE 20 MG TABLET PO SCH (09:33)
[2019-03-12] MEDS: EPOETIN ALFA 10,000 UNITS/ML VIAL SQ SCH (09:59)
[2019-03-12] MEDS: CefTRIAXone 1 GM/DEXTROSE 50 ML IV SCH (10:06)
[2019-03-12] MEDS: INSULIN LISPRO 100 UNITS/ML SQ PRN ×3 (12:24→20:34)
[2019-03-12 12:29] VITALS: BP 112/61
[2019-03-12 17:21] VITALS: BP 111/56
[2019-03-12 18:32] LABS: CREATININE,URINE RANDOM 46.2 mg/dL (30.0-125.0)
[2019-03-12] MEDS ORDERED: BISACODYL 5 MG EC TABLET PO PRN (18:45)
[2019-03-12 19:14] VITALS: BP 110/53
[2019-03-12] MEDS: ATORVASTATIN CALCIUM 20 MG TABLET PO SCH ×3 (20:31→20:43)
[2019-03-12] MEDS: BISACODYL 5 MG EC TABLET PO PRN (20:32)
[2019-03-12] MEDS: INSULIN GLARGINE,HUM.REC.ANLOG 100 UNITS/ML SQ SCH (20:33)
[2019-03-12 23:02] VITALS: BP 107/59
[2019-03-13 00:40] LABS: GLUCOMETER DEV NAME(LOC) 5N.1; GLUCOSE,POINT OF CARE 179 MG/DL (70-110)
[2019-03-13 00:40] LABS: GLUCOMETER DEV NAME(LOC) 5N.1; GLUCOSE,POINT OF CARE 190 MG/DL (70-110)
[2019-03-13 00:41] LABS: GLUCOMETER DEV NAME(LOC) 5N.1; GLUCOSE,POINT OF CARE 175 MG/DL (70-110)
[2019-03-13 05:44] VITALS: BP 125/50
[2019-03-13 05:52] LABS: CALCIUM, TOTAL 8.8 mg/dL (8.8-10.5); CREATININE 2.56 mg/dL (0.60-1.30); MAGNESIUM 1.9 mg/dL (1.80-2.40); PHOSPHORUS 3.9 mg/dL (2.5-4.9); POTASSIUM 4.4 mmol/L (3.5-5.1)
[2019-03-13 07:14] VITALS: BP 116/56
[2019-03-13] MEDS: HEPARIN SODIUM,PORCINE 5,000 UNITS/ML VIAL SQ SCH ×2 (08:14→20:18)
[2019-03-13] MEDS: AMIODARONE HCL 200 MG TABLET PO SCH (08:15)
[2019-03-13] MEDS: FAMOTIDINE 20 MG TABLET PO SCH (08:15)
[2019-03-13] MEDS: FUROSEMIDE 20 MG/2 ML VIAL IVP SCH ×2 (08:15→20:18)
[2019-03-13] MEDS: CLOPIDOGREL BISULFATE 75 MG TABLET PO SCH (08:15)
[2019-03-13] MEDS: DOCUSATE SODIUM 100 MG CAPSULE PO SCH ×2 (08:15→20:18)
[2019-03-13] MEDS: CARVEDILOL 3.125 MG TABLET PO SCH ×2 (08:15→20:18)
[2019-03-13] MEDS: ASPIRIN 81 MG CHEWABLE TABLET PO SCH (08:15)
[2019-03-13] MEDS: CefTRIAXone 1 GM/DEXTROSE 50 ML IV SCH (10:45)
[2019-03-13] MEDS: BISACODYL 10 MG RECTAL RECTAL SUPPOSITORY PR PRN ×2 (11:24→11:27)
[2019-03-13 11:31] VITALS: BP 114/52
[2019-03-13 11:41] LABS: GLUCOMETER DEV NAME(LOC) 5N.2; GLUCOSE,POINT OF CARE 111 MG/DL (70-110)
[2019-03-13 12:00] LABS: GLUCOMETER DEV NAME(LOC) 5N.1; GLUCOSE,POINT OF CARE 141 MG/DL (70-110)
[2019-03-13] MEDS: INSULIN LISPRO 100 UNITS/ML SQ PRN ×3 (12:40→20:20)
[2019-03-13 15:41] VITALS: BP 102/61
[2019-03-13 19:46] VITALS: BP 116/74
[2019-03-13 19:55] LABS: GLUCOMETER DEV NAME(LOC) 5N.1; GLUCOSE,POINT OF CARE 165 MG/DL (70-110)
[2019-03-13 19:59] VITALS: BP 123/51
[2019-03-13] MEDS: ATORVASTATIN CALCIUM 20 MG TABLET PO SCH (20:18)
[2019-03-13] MEDS: INSULIN GLARGINE,HUM.REC.ANLOG 100 UNITS/ML SQ SCH (20:19)
[2019-03-14] VITALS (7 sets, daily range): BP systolic 104–121; BP diastolic 52–67
[2019-03-14 01:09] LABS: GLUCOMETER DEV NAME(LOC) 5N.2; GLUCOSE,POINT OF CARE 185 MG/DL (70-110)
[2019-03-14] MEDS: ACETAMINOPHEN 325 MG TABLET PO PRN (01:35)
[2019-03-14 06:27] LABS: HEMATOCRIT 27.7 % (36-46); HEMOGLOBIN 9.3 g/dL (12.0-16.0); MEAN CORPUSCULAR HEMOGLOBIN 31.6 pg (26.0-34.0); MEAN CORPUSCULAR HGB CONC 33.5 G/dL (31.0-37.0); MEAN CORPUSCULAR VOLUME 94 fL (80-100); PLATELET COUNT (AUTO) 139 K/uL (150-450); RED BLOOD CELL COUNT(AUTO) 2.94 MIL/uL (4.00-5.20); RED CELL DISTRIBUTION WIDTH 16.6 % (11.5-14.5)
[2019-03-14 06:44] LABS: CALCIUM, TOTAL 8.7 mg/dL (8.8-10.5); CREATININE 2.39 mg/dL (0.60-1.30); MAGNESIUM 2.1 mg/dL (1.80-2.40); PHOSPHORUS 3.8 mg/dL (2.5-4.9); POTASSIUM 4.4 mmol/L (3.5-5.1)
[2019-03-14] MEDS: FAMOTIDINE 20 MG TABLET PO SCH (09:15)
[2019-03-14] MEDS: CARVEDILOL 3.125 MG TABLET PO SCH ×2 (09:16→23:18)
[2019-03-14] MEDS: DOCUSATE SODIUM 100 MG CAPSULE PO SCH ×2 (09:16→23:18)
[2019-03-14] MEDS: AMIODARONE HCL 200 MG TABLET PO SCH (09:16)
[2019-03-14] MEDS: CLOPIDOGREL BISULFATE 75 MG TABLET PO SCH (09:16)
[2019-03-14] MEDS: ASPIRIN 81 MG CHEWABLE TABLET PO SCH (09:17)
[2019-03-14] MEDS: HEPARIN SODIUM,PORCINE 5,000 UNITS/ML VIAL SQ SCH ×2 (09:21→21:00)
[2019-03-14] MEDS: EPOETIN ALFA 10,000 UNITS/ML VIAL SQ SCH (09:21)
[2019-03-14 10:38] LABS: BAND NEUTROPHILS % (MANUAL) 1 % (0-5); BASOPHILS % (MANUAL) 1 % (0-2); LYMPHOCYTES % (MANUAL) 18 % (22-44); MONOCYTES % (MANUAL) 10 % (2-9); PLATELET MORPHOLOGY COMMENT LARGE PLTS PRESENT; SEGMENTED NEUTROPHILS % 70 % (40-70)
[2019-03-14] MEDS ORDERED: ALPRAZolam 0.5 MG TABLET PO PRN (10:45)
[2019-03-14] MEDS: CefTRIAXone 1 GM/DEXTROSE 50 ML IV SCH (11:24)
[2019-03-14] MEDS: MECLIZINE HCL 25 MG TABLET PO PRN (11:27)
[2019-03-14 12:01] LABS: GLUCOMETER DEV NAME(LOC) 5N.2; GLUCOSE,POINT OF CARE 165 MG/DL (70-110)
[2019-03-14 12:01] LABS: GLUCOMETER DEV NAME(LOC) 5N.2; GLUCOSE,POINT OF CARE 136 MG/DL (70-110)
[2019-03-14] MEDS: INSULIN LISPRO 100 UNITS/ML SQ PRN ×2 (13:42→18:07)
[2019-03-14] MEDS: INSULIN GLARGINE,HUM.REC.ANLOG 100 UNITS/ML SQ SCH (21:00)
[2019-03-14] MEDS: ATORVASTATIN CALCIUM 20 MG TABLET PO SCH (23:21)
[2019-03-15] VITALS (7 sets, daily range): BP systolic 95–132; BP diastolic 37–66
[2019-03-15 06:25] LABS: HEMATOCRIT 31.3 % (36-46); HEMOGLOBIN 10.4 g/dL (12.0-16.0); MEAN CORPUSCULAR HEMOGLOBIN 31.3 pg (26.0-34.0); MEAN CORPUSCULAR HGB CONC 33.4 G/dL (31.0-37.0); MEAN CORPUSCULAR VOLUME 94 fL (80-100); PLATELET COUNT (AUTO) 157 K/uL (150-450); RED BLOOD CELL COUNT(AUTO) 3.34 MIL/uL (4.00-5.20); RED CELL DISTRIBUTION WIDTH 16.8 % (11.5-14.5)
[2019-03-15 06:42] LABS: CALCIUM, TOTAL 9.1 mg/dL (8.8-10.5); CREATININE 2.3 mg/dL (0.60-1.30); MAGNESIUM 2.2 mg/dL (1.80-2.40); PHOSPHORUS 4.1 mg/dL (2.5-4.9); POTASSIUM 4.7 mmol/L (3.5-5.1)
[2019-03-15 08:00] LABS: BAND NEUTROPHILS % (MANUAL) 2 % (0-5); LYMPHOCYTES % (MANUAL) 21 % (22-44); MONOCYTES % (MANUAL) 8 % (2-9); SEGMENTED NEUTROPHILS % 69 % (40-70)
[2019-03-15 08:03] LABS: PLATELET MORPHOLOGY COMMENT LARGE PLTS PRESENT
[2019-03-15] MEDS: FUROSEMIDE 20 MG/2 ML VIAL IVP SCH (08:39)
[2019-03-15] MEDS: ASPIRIN 81 MG CHEWABLE TABLET PO SCH (08:40)
[2019-03-15] MEDS: DOCUSATE SODIUM 100 MG CAPSULE PO SCH ×2 (08:40→20:10)
[2019-03-15] MEDS: CLOPIDOGREL BISULFATE 75 MG TABLET PO SCH (08:40)
[2019-03-15] MEDS: AMIODARONE HCL 200 MG TABLET PO SCH (08:41)
[2019-03-15] MEDS: CARVEDILOL 3.125 MG TABLET PO SCH ×2 (08:41→20:19)
[2019-03-15] MEDS: FAMOTIDINE 20 MG TABLET PO SCH (08:42)
[2019-03-15] MEDS: HEPARIN SODIUM,PORCINE 5,000 UNITS/ML VIAL SQ SCH ×2 (08:43→20:19)
[2019-03-15 09:50] LABS: GLUCOMETER DEV NAME(LOC) 5N.2; GLUCOSE,POINT OF CARE 149 MG/DL (70-110)
[2019-03-15 09:50] LABS: GLUCOMETER DEV NAME(LOC) 5N.2; GLUCOSE,POINT OF CARE 117 MG/DL (70-110)
[2019-03-15 09:51] LABS: GLUCOMETER DEV NAME(LOC) 5N.1; GLUCOSE,POINT OF CARE 125 MG/DL (70-110)
[2019-03-15] MEDS: CefTRIAXone 1 GM/DEXTROSE 50 ML IV SCH (10:50)
[2019-03-15] MEDS: INSULIN LISPRO 100 UNITS/ML SQ PRN ×2 (11:25→21:02)
[2019-03-15] MEDS ORDERED: IPRATROPIUM BROMIDE 0.5 MG/2.5 ML NEB SOLUTION NEB PRN (14:00)
[2019-03-15] MEDS ORDERED: SODIUM CHLORIDE 1 GM TABLET PO ONE (14:00)
[2019-03-15] MEDS ORDERED: ALBUTEROL SULFATE 2.5 MG/0.5 ML NEB SOLUTION NEB PRN (14:00)
[2019-03-15 20:10] LABS: GLUCOMETER DEV NAME(LOC) 5S.1; GLUCOSE,POINT OF CARE 140 MG/DL (70-110)
[2019-03-15 20:10] LABS: GLUCOMETER DEV NAME(LOC) 5S.1; GLUCOSE,POINT OF CARE 147 MG/DL (70-110)
[2019-03-15] MEDS: ATORVASTATIN CALCIUM 20 MG TABLET PO SCH (20:11)
[2019-03-15] MEDS: BISACODYL 5 MG EC TABLET PO PRN (20:22)
[2019-03-15] MEDS: INSULIN GLARGINE,HUM.REC.ANLOG 100 UNITS/ML SQ SCH (21:03)
[2019-03-16 05:50] VITALS: BP 105/51
[2019-03-16 06:44] LABS: BASOPHILS % (AUTO) 2.3 % (0.0-2.0); EOSINOPHILS % (AUTO) 0.3 % (1.0-6.0); HEMATOCRIT 28.6 % (36-46); HEMOGLOBIN 9.6 g/dL (12.0-16.0); LYMPHOCYTES # (AUTO) 4.6 K/uL (1.0-4.8); LYMPHOCYTES % (AUTO) 55.9 % (22.0-44.0); MEAN CORPUSCULAR HEMOGLOBIN 31.5 pg (26.0-34.0); MEAN CORPUSCULAR HGB CONC 33.4 G/dL (31.0-37.0); MEAN CORPUSCULAR VOLUME 94 fL (80-100); MONOCYTES # (AUTO) 0.8 K/uL (0.1-1.0); MONOCYTES % (AUTO) 9.1 % (2.0-9.0); NEUTROPHILS # (AUTO) 2.7 K/uL (1.8-7.7); NEUTROPHILS % (AUTO) 32.4 % (40.0-70.0); PLATELET COUNT (AUTO) 145 K/uL (150-450); RED BLOOD CELL COUNT(AUTO) 3.04 MIL/uL (4.00-5.20); RED CELL DISTRIBUTION WIDTH 16.6 % (11.5-14.5)
[2019-03-16 07:05] LABS: CALCIUM, TOTAL 8.7 mg/dL (8.8-10.5); CREATININE 2.48 mg/dL (0.60-1.30); MAGNESIUM 2.3 mg/dL (1.80-2.40); POTASSIUM 4.7 mmol/L (3.5-5.1)
[2019-03-16 07:36] LABS: GLUCOMETER DEV NAME(LOC) 5S.1; GLUCOSE,POINT OF CARE 112 MG/DL (70-110)
[2019-03-16 08:08] VITALS: BP 122/59
[2019-03-16] MEDS: HEPARIN SODIUM,PORCINE 5,000 UNITS/ML VIAL SQ SCH ×2 (10:13→20:36)
[2019-03-16] MEDS: EPOETIN ALFA 10,000 UNITS/ML VIAL SQ SCH (10:14)
[2019-03-16 10:41] VITALS: BP 111/62
[2019-03-16 11:26] VITALS: BP 114/50
[2019-03-16] MEDS: CLOPIDOGREL BISULFATE 75 MG TABLET PO SCH (11:54)
[2019-03-16] MEDS: ASPIRIN 81 MG CHEWABLE TABLET PO SCH (11:54)
[2019-03-16] MEDS: FAMOTIDINE 20 MG TABLET PO SCH (11:54)
[2019-03-16] MEDS: FUROSEMIDE 20 MG/2 ML VIAL IVP SCH (11:54)
[2019-03-16] MEDS: DOCUSATE SODIUM 100 MG CAPSULE PO SCH ×2 (11:54→20:33)
[2019-03-16] MEDS: CARVEDILOL 3.125 MG TABLET PO SCH ×2 (11:55→20:36)
[2019-03-16] MEDS: AMIODARONE HCL 200 MG TABLET PO SCH (11:55)
[2019-03-16] MEDS: INSULIN LISPRO 100 UNITS/ML SQ PRN ×2 (11:57→18:20)
[2019-03-16] MEDS ORDERED: SODIUM CHLORIDE 0.9% 100 ML ONE (12:00)
[2019-03-16 12:01] LABS: GLUCOMETER DEV NAME(LOC) 5S.1; GLUCOSE,POINT OF CARE 217 MG/DL (70-110)
[2019-03-16] MEDS: CefTRIAXone 1 GM/DEXTROSE 50 ML IV SCH (12:02)
[2019-03-16] MEDS ORDERED: TOLVAPTAN 15 MG TABLET PO ONE (14:30)
[2019-03-16 16:00] LABS: GLUCOMETER DEV NAME(LOC) 5S.2A; GLUCOSE,POINT OF CARE 195 MG/DL (70-110)
[2019-03-16 16:04] VITALS: BP 108/57
[2019-03-16 17:45] LABS: SODIUM,URINE RANDOM 24 mmol/l (20-110)
[2019-03-16 17:46] LABS: OSMOLALITY,URINE 332 mOS/kg (50-1200)
[2019-03-16] MEDS: BISACODYL 5 MG EC TABLET PO PRN (18:15)
[2019-03-16 19:41] VITALS: BP 98/57
[2019-03-16] MEDS: ATORVASTATIN CALCIUM 20 MG TABLET PO SCH (20:33)
[2019-03-16] MEDS: INSULIN GLARGINE,HUM.REC.ANLOG 100 UNITS/ML SQ SCH (20:48)
[2019-03-16] MEDS ORDERED: SODIUM CHLORIDE 1 GM TABLET PO SCH (21:00)
[2019-03-16 21:05] LABS: GLUCOMETER DEV NAME(LOC) 5S.1; GLUCOSE,POINT OF CARE 150 MG/DL (70-110)
[2019-03-16 23:20] LABS: GLUCOMETER DEV NAME(LOC) 5N.1; GLUCOSE,POINT OF CARE 146 MG/DL (70-110)
[2019-03-17 00:02] VITALS: BP 114/62
[2019-03-17] MEDS: ACETAMINOPHEN 325 MG TABLET PO PRN (01:07)
[2019-03-17] MEDS: MECLIZINE HCL 25 MG TABLET PO PRN (01:12)
[2019-03-17 04:49] VITALS: BP 102/47
[2019-03-17 06:22] LABS: CALCIUM, TOTAL 8.7 mg/dL (8.8-10.5); CREATININE 2.44 mg/dL (0.60-1.30); POTASSIUM 4.7 mmol/L (3.5-5.1)
[2019-03-17 07:40] LABS: GLUCOMETER DEV NAME(LOC) 5N.1; GLUCOSE,POINT OF CARE 130 MG/DL (70-110)
[2019-03-17 08:22] VITALS: BP 119/51
[2019-03-17] MEDS ORDERED: TOLVAPTAN 15 MG TABLET PO ONE ×2 (08:45→21:15)
[2019-03-17 09:18] LABS: CALCIUM, TOTAL 8.9 mg/dL (8.8-10.5); CREATININE 2.51 mg/dL (0.60-1.30); POTASSIUM 4.7 mmol/L (3.5-5.1)
[2019-03-17] MEDS ORDERED: LACTULOSE 20 GM/30 ML SOLUTION UDCUP PO PRN (09:45)
[2019-03-17] MEDS: CARVEDILOL 3.125 MG TABLET PO SCH ×2 (09:53→20:06)
[2019-03-17] MEDS: ASPIRIN 81 MG CHEWABLE TABLET PO SCH (09:53)
[2019-03-17] MEDS: AMIODARONE HCL 200 MG TABLET PO SCH (09:53)
[2019-03-17] MEDS: DOCUSATE SODIUM 100 MG CAPSULE PO SCH ×2 (09:53→20:06)
[2019-03-17] MEDS: CLOPIDOGREL BISULFATE 75 MG TABLET PO SCH (09:53)
[2019-03-17] MEDS: HEPARIN SODIUM,PORCINE 5,000 UNITS/ML VIAL SQ SCH ×2 (09:53→20:07)
[2019-03-17] MEDS: FAMOTIDINE 20 MG TABLET PO SCH (09:53)
[2019-03-17] MEDS: CefTRIAXone 1 GM/DEXTROSE 50 ML IV SCH (09:54)
[2019-03-17 11:37] VITALS: BP 117/49
[2019-03-17] MEDS: INSULIN LISPRO 100 UNITS/ML SQ PRN ×3 (12:12→20:05)
[2019-03-17] MEDS: BISACODYL 10 MG RECTAL RECTAL SUPPOSITORY PR PRN (13:43)
[2019-03-17 16:00] VITALS: BP 119/49
[2019-03-17 16:13] LABS: CALCIUM, TOTAL 9.2 mg/dL (8.8-10.5); CREATININE 2.54 mg/dL (0.60-1.30); POTASSIUM 4.6 mmol/L (3.5-5.1)
[2019-03-17 18:26] LABS: GLUCOMETER DEV NAME(LOC) 5N.2; GLUCOSE,POINT OF CARE 177 MG/DL (70-110)
[2019-03-17 18:26] LABS: GLUCOMETER DEV NAME(LOC) 5N.2; GLUCOSE,POINT OF CARE 146 MG/DL (70-110)
[2019-03-17] MEDS: INSULIN GLARGINE,HUM.REC.ANLOG 100 UNITS/ML SQ SCH (20:05)
[2019-03-17] MEDS: ATORVASTATIN CALCIUM 20 MG TABLET PO SCH (20:06)
[2019-03-17 20:22] VITALS: BP 106/39
[2019-03-18] VITALS (7 sets, daily range): BP systolic 100–118; BP diastolic 43–78
[2019-03-18] MEDS ORDERED: WATER FOR INJECTION STERILE IV SCH (03:45)
[2019-03-18] MEDS ORDERED: SODIUM CHLORIDE IV SCH (03:45)
[2019-03-18 08:22] LABS: GLUCOMETER DEV NAME(LOC) 5N.1; GLUCOSE,POINT OF CARE 150 MG/DL (70-110)
[2019-03-18] MEDS: ASPIRIN 81 MG CHEWABLE TABLET PO SCH (08:49)
[2019-03-18] MEDS: DOCUSATE SODIUM 100 MG CAPSULE PO SCH ×2 (08:50→21:05)
[2019-03-18] MEDS: AMIODARONE HCL 200 MG TABLET PO SCH (08:51)
[2019-03-18] MEDS: FAMOTIDINE 20 MG TABLET PO SCH (08:51)
[2019-03-18] MEDS: CLOPIDOGREL BISULFATE 75 MG TABLET PO SCH (08:51)
[2019-03-18] MEDS: HEPARIN SODIUM,PORCINE 5,000 UNITS/ML VIAL SQ SCH ×2 (08:51→21:11)
[2019-03-18] MEDS: CARVEDILOL 3.125 MG TABLET PO SCH ×2 (09:00→21:05)
[2019-03-18] MEDS: CefTRIAXone 1 GM/DEXTROSE 50 ML IV SCH (10:29)
[2019-03-18] MEDS: INSULIN LISPRO 100 UNITS/ML SQ PRN ×3 (11:50→21:24)
[2019-03-18] MEDS ORDERED: ATOR20TA86 PO (14:03)
[2019-03-18] MEDS ORDERED: FAMO20 PO (14:04)
[2019-03-18] MEDS ORDERED: ALPR0.5T8 PO (14:05)
[2019-03-18] MEDS ORDERED: MECL-111 PO (14:06)
[2019-03-18] MEDS: SODIUM CHLORIDE 3% 500 ML IV SCH (15:18)
[2019-03-18] MEDS: MECLIZINE HCL 25 MG TABLET PO PRN (18:10)
[2019-03-18] MEDS: ATORVASTATIN CALCIUM 20 MG TABLET PO SCH (21:05)
[2019-03-18] MEDS: INSULIN GLARGINE,HUM.REC.ANLOG 100 UNITS/ML SQ SCH (21:23)
[2019-03-19] MEDS: SODIUM CHLORIDE 3% 500 ML IV SCH (05:10)
[2019-03-19 05:56] LABS: GLUCOMETER DEV NAME(LOC) 5N.2; GLUCOSE,POINT OF CARE 188 MG/DL (70-110)
[2019-03-19 05:56] LABS: GLUCOMETER DEV NAME(LOC) 5N.2; GLUCOSE,POINT OF CARE 129 MG/DL (70-110)
[2019-03-19 05:56] LABS: GLUCOMETER DEV NAME(LOC) 5N.2; GLUCOSE,POINT OF CARE 156 MG/DL (70-110)
[2019-03-19 05:57] LABS: GLUCOMETER DEV NAME(LOC) 5N.2; GLUCOSE,POINT OF CARE 169 MG/DL (70-110)
[2019-03-19 05:58] VITALS: BP 110/45
[2019-03-19 07:59] VITALS: BP 120/64
[2019-03-19] MEDS: CLOPIDOGREL BISULFATE 75 MG TABLET PO SCH (08:37)
[2019-03-19] MEDS: CARVEDILOL 3.125 MG TABLET PO SCH (08:38)
[2019-03-19] MEDS: FAMOTIDINE 20 MG TABLET PO SCH (08:38)
[2019-03-19] MEDS: ASPIRIN 81 MG CHEWABLE TABLET PO SCH (08:38)
[2019-03-19] MEDS: DOCUSATE SODIUM 100 MG CAPSULE PO SCH (08:38)
[2019-03-19] MEDS: AMIODARONE HCL 200 MG TABLET PO SCH (08:38)
[2019-03-19] MEDS: HEPARIN SODIUM,PORCINE 5,000 UNITS/ML VIAL SQ SCH (08:40)
[2019-03-19] MEDS: EPOETIN ALFA 10,000 UNITS/ML VIAL SQ SCH (08:45)
[2019-03-19] MEDS: CefTRIAXone 1 GM/DEXTROSE 50 ML IV SCH (10:38)
[2019-03-19 11:00] VITALS: BP 106/43
[2019-03-19 12:30] LABS: GLUCOMETER DEV NAME(LOC) 5N.1; GLUCOSE,POINT OF CARE 79 MG/DL (70-110)
[2019-03-19] MEDS ORDERED: APIXABAN 2.5 MG TABLET PO SCH (13:45)
[2019-03-19] MEDS ORDERED: FAMO20 PO (14:21)
[2019-03-19] MEDS ORDERED: APIX2.5T PO (14:23)
[2019-03-19 20:30] LABS: GLUCOMETER DEV NAME(LOC) 5S.2A; GLUCOSE,POINT OF CARE 184 MG/DL (70-110)
[2019-03-19 20:31] LABS: GLUCOMETER DEV NAME(LOC) 5S.1; GLUCOSE,POINT OF CARE 133 MG/DL (70-110)
== END 2019-03-19 16:35 | DRG 291 ==
LOC: EMS 04:22 → 5S 07:10
PROVIDERS: ADMIT Internal Medicine; ATTEND Internal Medicine
DX: I13.0 Hypertensive heart and chronic kidney disease with heart failure and stage 1 through stage 4 chronic kidney disease, or unspecified chronic kidney disease (principal); I50.33 Acute on chronic diastolic (congestive) heart failure; N17.9 Acute kidney failure, unspecified; N39.0 Urinary tract infection, site not specified; E87.1 Hypo-osmolality and hyponatremia; N18.4 Chronic kidney disease, stage 4 (severe); K80.20 Calculus of gallbladder without cholecystitis without obstruction; I25.10 Atherosclerotic heart disease of native coronary artery without angina pectoris; Z95.1 Presence of aortocoronary bypass graft; D64.9 Anemia, unspecified; E78.5 Hyperlipidemia, unspecified; Z95.810 Presence of automatic (implantable) cardiac defibrillator; E11.22 Type 2 diabetes mellitus with diabetic chronic kidney disease; E78.00 Pure hypercholesterolemia, unspecified; F41.9 Anxiety disorder, unspecified; I25.5 Ischemic cardiomyopathy; I48.91 Unspecified atrial fibrillation; K59.00 Constipation, unspecified; Z79.02 Long term (current) use of antithrombotics/antiplatelets; Z79.4 Long term (current) use of insulin; Z79.82 Long term (current) use of aspirin; Z79.899 Other long term (current) drug therapy; Z82.49 Family history of ischemic heart disease and other diseases of the circulatory system; Z83.3 Family history of diabetes mellitus; Z95.5 Presence of coronary angioplasty implant and graft
CPT/HCPCS: 76770; 82570; 83540; 83550; 83735; 83935; 84100; 84295; 84300; 84540; 87081; 87086; 93005; G0238; J0696; J0885; J1644; J1815; J1940; J1956; J7030; J7050